=== PATIENT | female | born 1960 | race Caucasian/White ===

== ENCOUNTER 2017-05-26 04:57 | Inpatient (IN) | payer BC, OTHER ==
[2017-05-02 15:08] VITALS: BMI 42.0
--- NOTE | 2017-05-02 15:39 | PAT Medication Instructions ---
Service Date May 02, 2017. Current Home Medication List Ibuprofen Tab (Advil), 400-600 MG PO Q6H PRN for Pain Medication Instructions For Your Scheduled Surgery - Contact your surgeon for instructions for: Ibuprofen Tab (Advil), 400-600 MG PO Q6H PRN for Pain NOTHING TO EAT OR DRINK AFTER MIDNIGHT THE NIGHT BEFORE SURGERY If you have any questions please call us at [phone] or [phone] or [phone]
--- NOTE | 2017-05-02 16:22 | DIAGNOSTIC IMAGING REPORT ---
CHEST 2 VIEWS ROUTINE HISTORY: 57 years-old Female PAT preoperative exam. No acute chest complaints. COMPARISON: Chest radiographs 02/04/2010, CT chest 10/21/2009 TECHNIQUE: PA and lateral views of the chest FINDINGS: Cardiomediastinal and hilar silhouettes are within normal limits. Mild right hemidiaphragmatic elevation. No pneumothorax, pleural effusion, focal airspace consolidation or overt pulmonary edema. Nonspecific 1.4 cm density caudal to the coracoid process suggest possible loose body within the subscapularis recess. Degenerative changes are seen within the shoulders and spine. IMPRESSION: No acute process. The above report was generated using voice recognition software. It may contain grammatical, syntax or spelling errors. Electronically signed by: Miguel Esquivel M.D. 05/02/2017 4:21 PM Dictated Date/Time: 05/02/2017 4:19 PM
[2017-05-02 16:28] LABS: BASO % 0.2 %; BASO ABS # 0.01 K/uL (0-0.2); EOS ABS # 0.15 K/uL (0-0.5); HEMATOCRIT 40.9 % (37-47); HEMOGLOBIN 13.9 g/dL (12.0-16.0); LYMPH % 36.4 %; LYMPH ABS # 1.79 K/uL (1.2-3.4); MEAN CORPUSCULAR HEMOGLOBIN 31.6 pg (25-34); MEAN PLATELET VOLUME 8.8 fL (7.4-10.4); MONO % 7.5 %; MONO ABS # 0.37 K/uL (0.11-0.59); NEUT % 52.9 %; PLATELET COUNT 286 K/uL (130-400); RED CELL DISTRIBUTION WIDTH CV 12.9 % (11.5-14.5); RED CELL DISTRIBUTION WIDTH SD 43.5 fL (36.4-46.3); WHITE BLOOD COUNT 4.92 K/uL (4.8-10.8)
[2017-05-02 16:31] LABS: INR 0.9 (0.9-1.1); PTT PATIENT 26.7 SECONDS (21.0-31.0)
[2017-05-02 16:41] LABS: CALCIUM 9.4 mg/dl (8.5-10.1); CREATININE 0.89 mg/dl (0.60-1.20); POTASSIUM 4.6 mmol/L (3.5-5.1)
--- NOTE | 2017-05-25 14:33 | HISTORY & PHYSICAL EXAMINATION ---
DATE OF ADMISSION: 05/26/2017 CHIEF COMPLAINT: Advanced osteoarthritis of the left hip. HISTORY OF PRESENT ILLNESS: Tammy is a pleasant 57-year-old female who has been dealing with chronic hip pain in her left hip. X-rays and clinical examination were diagnostic for what appeared to be a developmental dysplasia of her hip and severe osteoarthritis. She is to the point now where she is walking with crutches because of the pain. After failing extensive conservative treatment, she elected to proceed with a left total hip arthroplasty. She understands all the risks, benefits, and alternatives to procedure and elected to proceed. PAST MEDICAL HISTORY: Denies. PAST SURGICAL HISTORY: Significant for hysterectomy and 2 C-sections. ALLERGIES: SULFA. CURRENT MEDICATIONS: None. FAMILY HISTORY: Denies. SOCIAL HISTORY: She is , has 2 kids. Rarely drinks. She is mildly active. REVIEW OF SYSTEMS: She complains mostly of left hip pain. All other pertinent review of systems negative. PHYSICAL EXAMINATION: GENERAL: She is awake, alert and orient x3. She is in no apparent distress. She is very pleasant. HEENT: Pupils equal, round, reactive to light. Extraocular motions intact. Oral mucosa is pink and moist. HEART: Heart is a regular rate per radial pulse. LUNGS: Breana symmetrically bilaterally with no audible breath sounds. ABDOMEN: Soft, nontender, and nondistended. MUSCULOSKELETAL: On physical examination of her hip, her left hip is about a centimeter shorter than the right. She walks with a very antalgic gait. She can only flex her hip about 40 degrees and reports she has a lot of pain. She has severe pain with internal and external rotation and very limited range of motion. She has 5/5 muscle strength in her quads. 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 IMPRESSION: Advanced osteoarthritis, left hip. PLAN: We will proceed with a left total hip arthroplasty. Postoperatively, she will be placed on aspirin for DVT prophylaxis and kept in the hospital for postoperative medical management.
[~2017-05-26] VITALS: Ht 149.9 cm; Wt 94.4 kg
[2017-05-26] VITALS (16 sets, daily range): BP systolic 78–118; BP diastolic 53–76; PULSE 61–90; TEMP 34.8–36.9; O2SAT 95–100; Ht 149.9 cm; Wt 94.4 kg
[~2017-05-26 04:57] MED LIST: IBUP-103 PO
[2017-05-26] MEDS ORDERED: ACETAMINOPHEN 500 MG TAB PO SCH (06:00)
[2017-05-26] MEDS ORDERED: ROPIVACAINE 5MG/ML 30 ML 150 MG, BUPIVACAINE 0.5% MPF INJ 30 ML, EpINEphrine HCL INJ 0.... INFIL SCH ×8 (06:00)
[2017-05-26] MEDS ORDERED: LACTATED RINGER'S 1000ML 1,000 ML IV SCH (06:00)
[2017-05-26] MEDS ORDERED: GABAPENTIN 600 MG PO SCH (06:00)
[2017-05-26] MEDS ORDERED: LACTATED RINGER'S 1000ML IV SCH (06:00)
[2017-05-26] MEDS ORDERED: CEFAZOLIN 2000MG IV PUSH 15 ML IV SCH (06:00)
[2017-05-26] MEDS ORDERED: LACTATED RINGER'S 1000ML 500 ML IV SCH (06:00)
[2017-05-26] MEDS ORDERED: FAMOTIDINE 20 MG TAB PO SCH (06:00)
[2017-05-26] MEDS ORDERED: TRANEXAMIC ACID INJ 1,000 MG x 2 Bags IV SCH ×2 (06:00)
[2017-05-26] MEDS ORDERED: BUPIVACAINE 0.5 % 5 MG/1 ML PF 10ML VIAL ONE (06:20)
[2017-05-26] MEDS ORDERED: ORTHO JOINT ANESTHETIC ONE (06:28)
[2017-05-26] MEDS ORDERED: BACITRACIN 50000 UNIT VIAL ONE (06:28)
[2017-05-26] MEDS ORDERED: MIDAZOLAM HCL 1 MG/ML 2ML VIAL ONE ×3 (06:46→07:19)
--- NOTE | 2017-05-26 06:50 | History & Physical Bridge Note ---
H&P Re-Evaluation Bridge Note: I have examined the patient, reviewed the History & Physical and in the interval since the performance of the History & Physical I have noted the following changes of clinical significance: No changes noted
[2017-05-26] MEDS ORDERED: ONDANSETRON INJ 2 MG/ML 2 ML VIAL IV PRN ×2 (08:00→09:30)
[2017-05-26] MEDS ORDERED: EpHEDrine SULFATE INJ 50 MG/ML AMP IV PRN (08:00)
[2017-05-26] MEDS ORDERED: HYDROmorphone INJ 1 MG/ML SYR IV PRN (08:00)
[2017-05-26] MEDS ORDERED: MEPERIDINE HCL 25 MG/ML CARP IV PRN (08:00)
[2017-05-26] MEDS ORDERED: ATROPINE SULFATE 0.1 MG/ML 5ML SYR IV PRN (08:00)
[2017-05-26] MEDS ORDERED: FENTANYL CITRATE INJ 50 MCG/1 ML 2 ML VIAL IV PRN (08:00)
[2017-05-26] MEDS ORDERED: LABETALOL HCL IV 5 MG/ML 20ML IV PRN (08:00)
--- NOTE | 2017-05-26 09:20 | [facility] Post Operative Brief Note ---
Immediate Operative Summary Operative Date May 26, 2017. Pre-Operative Diagnosis Advanced osteoarthritis, left hip Post-Operative Diagnosis Advanced osteoarthritis, left hip Procedure(s) Performed Left Lateral Total Hip Arthroplasty, Uncemented Surgeon Dr. Gallardo Machine Assembler For Puller Over Surgeon(s) Arvind Hogan PA-C Estimated Blood Loss 250 mL Findings Consistent with Post-Op Diagnosis Specimens A: Left femoral head Anesthesia Type Spinal MAC Complication(s) none Disposition Disposition: Recovery Room / PACU
--- NOTE | 2017-05-26 09:27 | DIAGNOSTIC IMAGING REPORT ---
L HIP UNILATERAL 1 VIEW CLINICAL HISTORY: LT LATERAL TOTAL HIP hip replacement COMPARISON: None. DISCUSSION: Evidence for a total left hip arthroplasty. The guide prosthetics are in position. Soft tissue lateral aspect left hip presumably from a left lateral approach. IMPRESSION: Anatomic alignment of an intraoperative total hip arthroplasty The above report was generated using voice recognition software. It may contain grammatical, syntax or spelling errors. Electronically signed by: Juan Ochoa M.D. 05/26/2017 9:26 AM Dictated Date/Time: 05/26/2017 9:25 AM
[2017-05-26] MEDS ORDERED: MAGNESIUM HYDROXIDE SUSP 30 ML UDC PO PRN (09:30)
[2017-05-26] MEDS ORDERED: METOCLOPRAMIDE HCL INJ 5 MG/ML 2 ML VIAL IV PRN (09:30)
[2017-05-26] MEDS ORDERED: BISACODYL 10 MG SUPP PR PRN (09:30)
[2017-05-26] MEDS ORDERED: SOD PHOSPHATE/SOD BIPHOSPHATE ENEMA 132 ML BTL PR PRN (09:30)
[2017-05-26] MEDS ORDERED: MoRPHine SULFATE 2 MG/ML CARP IV PRN (09:30)
[2017-05-26] MEDS ORDERED: FENTANYL CITRATE INJ 50 MCG/1 ML 2 ML VIAL ONE (09:47)
[2017-05-26] MEDS ORDERED: PROPOFOL IV EMULSION 10 MG/ML 20 ML VIAL IV ONE (09:48)
[2017-05-26] MEDS ORDERED: LIDOCAINE HCL 2% 2 ML VIAL (20MG/ML) ONE (09:48)
[2017-05-26] MEDS ORDERED: ONDANSETRON INJ 2 MG/ML 2 ML VIAL ONE (09:48)
--- NOTE | 2017-05-26 10:06 | DIAGNOSTIC IMAGING REPORT ---
L PELVIS/UNILATERAL HIP 1 VIEW CLINICAL HISTORY: IN PACU - A/P PELVIS and LATERAL HIP INCLUDING ALL OF IMPLANT postoperative evaluation COMPARISON: None. DISCUSSION: Anatomic alignment posttotal left hip arthroplasty. Good contact between prosthetic and underlying bone. Surgical drains are in position. Expected soft tissue postoperative change. IMPRESSION: Anatomic alignment posttotal left hip arthroplasty. The above report was generated using voice recognition software. It may contain grammatical, syntax or spelling errors. Electronically signed by: Juan Ochoa M.D. 05/26/2017 10:04 AM Dictated Date/Time: 05/26/2017 10:03 AM
--- NOTE | 2017-05-26 10:25 | Anesthesiology Progress Note ---
Anesthesia Post Op Note Date & Time May 26, 2017 at 10:25 Vital Signs Pain Intensity: 3 Vital Signs Past 12 Hours Date Time Temp Pulse Resp B/P (MAP) Pulse Ox O2 Delivery O2 Flow Rate FiO2 05/26/17 10:15 36.0 59 12 97/75 (80) 98 Nasal Cannula 2 05/26/17 10:05 58 12 105/74 99 Nasal Cannula 2 05/26/17 09:55 64 12 108/68 (78) 99 Nasal Cannula 2 05/26/17 09:45 66 13 82/56 (62) 99 Nasal Cannula 2 05/26/17 09:39 36.1 72 16 89/59 (67) 99 Nasal Cannula 2 05/26/17 05:36 36.6 90 18 118/76 95 Room Air Notes Mental Status: alert / awake / arousable, participated in evaluation Pt Amnestic to Procedure: Yes Nausea / Vomiting: adequately controlled Pain: adequately controlled Airway Patency, RR, SpO2: stable & adequate BP & HR: stable & adequate Hydration State: stable & adequate Neuraxial Anesthesia: was administered, sensory block is resolving Anesthetic Complications: no major complications apparent
[2017-05-26] MEDS: SODIUM CHLORIDE 0.9% 1000ML 1,000 ML IV SCH ×2 (11:16→20:36)
[2017-05-26] MEDS: KETOROLAC TROMETHAMINE 30 MG/ML VIAL IV. SCH ×3 (11:58→23:25)
[2017-05-26] MEDS: CEFAZOLIN IV 2,000 MG in SYRINGE 0 ML IV SCH ×2 (14:03→21:54)
[2017-05-26] MEDS: ACETAMINOPHEN IV 1,000 MG in EMPTY BAG 0 ML IV SCH ×2 (14:03→21:54)
--- NOTE | 2017-05-26 16:01 | OPERATIVE REPORT ---
DATE OF OPERATION: 05/26/2017 PREOPERATIVE DIAGNOSIS: Advanced arthritis secondary to hip dysplasia of the left hip. POSTOPERATIVE DIAGNOSIS: Same. PROCEDURE: Left total hip arthroplasty. SURGEON: Dr. Arvind Gallardo. DRAPERY SEAMSTRESS: Arvind Hogan PA-C, whose assistance was necessary for retraction. ANESTHESIA: Spinal. COMPLICATIONS: None. CONDITION: Stable to PACU. IMPLANTS USED: I used a [employer]omet Taperloc total hip arthroplasty system with a size 5 standard offset Taperloc stem, a G7 OsseoTi acetabular cup with a single 20 mm screw and a G7 dual mobility head. I used a +6 neck. INDICATIONS: Tammy is a pleasant 57-year-old female who has been dealing with chronic increasing left hip pain. X-rays and clinical examination were diagnostic for developmental dysplasia of the left hip that is gone on to develop severe arthritis. After failing conservative treatment, she elected to undergo a left total hip arthroplasty. OPERATION AND FINDINGS: On 05/26/2017, she arrived at [facility] for the above procedure. She was seen in preoperative holding and the operative extremity was identified and signed, she was given a preoperative antibiotic and a spinal anesthetic. She was taken back to the operating room, laid on the table in supine position and put under basic sedation. She was then put in lateral decubitus position. The left hip was then prepped and draped in sterile fashion. Time-out was done. The patient's extremity was properly identified. An anterolateral approach was used. Dissection was taken down through the fascia and the lateral hip was exposed. The tensor was released and the anterior third of the abductors were tenotomized off the greater tuberosity. The capsule was then excised and the hip was dislocated. The femoral neck was then resected and the head was removed. The acetabulum was then exposed. Time was spent doing a complete circumferential capsular labral release. The acetabulum was then reamed sequentially up to a size 47 reamer. I was able to get good circumferential bleeding bone. I decided to use a G7 OsseoTi acetabular cup and that was impacted into place. The dual mobility metal liner was then impacted into place. The proximal femur was then exposed. Sequential broaching up to a size 5 broach was done. A standard femoral head was trialed. The hip was reduced. Flat plate x-ray showed adequate sizing of the components, but her leg was a little bit short. The hip was then dislocated. The broach was removed. The final size 5 Taperloc stem was then impacted into place. Several trials were used and I decided to go with a 28 head with a +6 neck. The final head and neck were impacted into place, the hip was reduced, brought through a full range of motion and felt to be stable. Surrounding soft tissues were injected with 100 mL of an orthopedic pain control cocktail. The wound was then irrigated with 3 liters of normal saline solution with bacitracin. The abductors were then tenodesed back to the greater trochanter with transosseous FiberWire sutures and [id number] sutures. Two drains were placed. Fascia was closed with #1 Vicryl suture. Skin was closed with 2-0 Vicryl and see. A Prevena VAC dressing was then placed. She was then transferred to a hospital bed and taken to postanesthesia care in stable condition. She tolerated the procedure well. I attest to the content of the Intraoperative Record and any orders documented therein. Any exception s are noted below.
[2017-05-26] MEDS: ASPIRIN 325 MG ECTAB PO SCH (20:31)
[2017-05-26] MEDS: DOCUSATE SODIUM 100 MG CAP PO SCH (20:31)
[2017-05-26] MEDS: SENNA 8.6 MG TAB PO SCH (20:31)
[2017-05-26] MEDS: OXYCODONE HCL IR 5 MG TAB (IMMEDIATE RELEASE) PO PRN (21:55)
[2017-05-27] VITALS (8 sets, daily range): BP systolic 91–135; BP diastolic 58–87; PULSE 64–112; TEMP 36.6–37.1; O2SAT 96–100
[2017-05-27] MEDS: ACETAMINOPHEN IV 1,000 MG in EMPTY BAG 0 ML IV SCH (06:04)
[2017-05-27] MEDS: KETOROLAC TROMETHAMINE 30 MG/ML VIAL IV. SCH ×4 (06:04→23:58)
[2017-05-27 06:08] LABS: BASO % 0.1 %; BASO ABS # 0.01 K/uL (0-0.2); EOS % 0.3 %; EOS ABS # 0.02 K/uL (0-0.5); HEMATOCRIT 30.3 % (37-47); HEMOGLOBIN 9.9 g/dL (12.0-16.0); IG# 0.02 K/uL (0.00-0.02); LYMPH % 12.9 %; LYMPH ABS # 1.01 K/uL (1.2-3.4); MEAN CELL VOLUME 93.5 fL (80-100); MEAN CORPUSCULAR HEMOGLOBIN 30.6 pg (25-34); MEAN CORPUSCULAR HGB CONC 32.7 g/dl (32-36); MEAN PLATELET VOLUME 8.6 fL (7.4-10.4); MONO % 7.4 %; MONO ABS # 0.58 K/uL (0.11-0.59); PLATELET COUNT 216 K/uL (130-400); RED CELL DISTRIBUTION WIDTH CV 12.8 % (11.5-14.5); RED CELL DISTRIBUTION WIDTH SD 44.2 fL (36.4-46.3); WHITE BLOOD COUNT 7.84 K/uL (4.8-10.8)
[2017-05-27 06:44] LABS: CALCIUM 7.9 mg/dl (8.5-10.1); CREATININE 1.02 mg/dl (0.60-1.20); POTASSIUM 4.4 mmol/L (3.5-5.1)
[2017-05-27] MEDS: SODIUM CHLORIDE 0.9% 1000ML 1,000 ML IV SCH (06:53)
[2017-05-27] MEDS: ASPIRIN 325 MG ECTAB PO SCH ×2 (08:56→21:09)
[2017-05-27] MEDS: DOCUSATE SODIUM 100 MG CAP PO SCH ×2 (08:56→21:09)
[2017-05-27] MEDS: MULTIVITAMIN TAB PO SCH (08:56)
--- NOTE | 2017-05-27 08:57 | PROGRESS NOTE ---
DATE: 05/27/2017 CHIEF COMPLAINT: Status post left total hip arthroplasty postop day #1. PROGRESS: Tammy was seen and examined at bedside today. Overall, she looks much better. She did have a fall yesterday when she passed out. She fell down slowly to the floor in the bathroom. Her hips have been doing fairly well. She has been up and ambulating to the bathroom since then. Her color is back. She says she feels fine. She has no complaints. PHYSICAL EXAMINATION: LEFT HIP: The Prevena VAC dressing is to suction. Her leg lengths are essentially equal. She has active dorsiflexion, plantarflexion of her left ankle and sensation is intact throughout. VITAL SIGNS: All stable on room air. She is a little hypotensive at 108/72, but not too bad. GENERAL: She is voiding on her own. Her drain output was 400 mL. LABORATORY DATA: She has an H&H today of 9.9 and 30.3. Her glucose is 109. IMAGING: X-rays postoperatively of the left hip show the prosthesis to be in anatomic alignment without any evidence of fracture, dislocation or loosening. IMPRESSION: Status post left total hip arthroplasty postop day #1. PLAN: At this point, she is doing well. She will be seen by physical therapy today for ambulation. We will keep her on oxycodone for pain control. She is on aspirin for DVT prophylaxis. I will see her at bedside tomorrow morning and if she is doing well, the nursing staff can pull the drain and will discharge her to home.
[2017-05-27] MEDS ORDERED: SODIUM CHLORIDE 0.9% 1000ML 1,000 ML IV SCH (12:00)
--- NOTE | 2017-05-27 13:03 | Medical Consult ---
Consultation Date of Consultation: May 27, 2017. Attending Physician: Arvind Gallardo DO Reason for Consultation: Dizziness History of Present Illness 57-year-old female with PMH of osteoarthritis, s/p day 1 Left hip surgery due to left hip pain. Pt failed conservative management and was ambulate with crutches. She had left total hip arthroplasty surgery done yesterday by Dr. Gallardo. Yesterday pt had a syncopal episode after she was going to the bathroom. She said that she felt warm before the syncopal episode. Code bret was called for the syncopal episode. Today pt said that she felt warm and dizzy while walking. She said that they had to hold her to prevent her from falling. After each episode, Her BP was low. Denies any chest pain, palpitation, fever, numbness, weakness and SOB. Social History Smoking Status: Never Smoker Allergies Coded Allergies: Sulfa Drugs (Verified Allergy, Unknown, RASH, 05/26/17) Current Inpatient Medications Current Inpatient Medications Medications (Trade) Dose Ordered Sig/Steffi Route Start Time Stop Time Status Last Admin Dose Admin Ketorolac Tromethamine (Toradol Inj) 30 mg Q6H IV. 05/26/17 12:00 05/28/17 09:29 05/27/17 06:04 30 MG Oxycodone HCl (Roxicodone Immediate Rel Tab) 1 TABLET FOR PAIN RATING... Q4H PRN PO 05/26/17 09:30 06/09/17 09:29 05/26/17 21:55 10 MG Morphine Sulfate (MoRPHine SULFATE INJ) 2 mg Q2HWA PRN IV 05/26/17 09:30 06/09/17 09:29 Acetaminophen (Tylenol Tab) 1,000 mg Q8H PO 05/27/17 14:00 06/26/17 13:59 Magnesium Hydroxide (Milk Of Magnesia Susp) 30 ml Q6H PRN PO 05/26/17 09:30 06/25/17 09:29 Bisacodyl (Dulcolax Supp) 10 mg DAILY PRN CA 05/26/17 09:30 06/25/17 09:29 Sodium Biphosphate/ Sodium Phosphate (Fleet Enema) 132 ml DAILY PRN CA 05/26/17 09:30 06/25/17 09:29 Senna (Senokot Tab) 17.2 mg HS PO 05/26/17 21:00 06/25/17 20:59 05/26/17 20:31 17.2 MG Docusate Sodium (coLACE CAP) 100 mg BID PO 05/26/17 21:00 06/25/17 20:59 05/27/17 08:56 100 MG Multivitamins (Multivitamin Tab) 1 tab QAM PO 05/27/17 09:00 06/26/17 08:59 05/27/17 08:56 1 TAB Ondansetron HCl (Zofran Inj) 4 mg Q6H PRN IV 05/26/17 09:30 06/25/17 09:29 Metoclopramide HCl (Reglan Inj) 10 mg Q6H PRN IV 05/26/17 09:30 06/25/17 09:29 Aspirin (Ecotrin Tab) 325 mg BID PO 05/26/17 21:00 06/25/17 20:59 05/27/17 08:56 325 MG Sodium Chloride 1,000 ml @ 100 mls/hr Q10H IV 05/27/17 12:00 05/27/17 21:59 Review of Systems Constitutional: No fever, No chills Eyes: No worsening of vision, No eye pain ENT: No nasal symptoms Respiratory: No cough, No sputum, No shortness of breath, No dyspnea on exertion Cardiovascular: No chest pain, No palpitations Abdomen: No pain, No nausea, No vomiting Musculoskeletal: No calf pain Genitourinary - Female: No dysuria Neurologic: + vertigo, No memory loss, No paralysis, No weakness, No numbness/ tingling Psychiatric: No depression symptoms, No substance abuse Endocrine: No fatigue Hematologic / Lymphatic: No swollen lymph nodes Integumentary: No rash, No itch Physical Exam Date Time Temp Pulse Resp B/P (MAP) Pulse Ox O2 Delivery O2 Flow Rate FiO2 05/27/17 11:08 36.8 74 16 99/68 (78) 99 Room Air 05/27/17 10:29 98/60 (73) 05/27/17 10:28 64 91/58 (69) 98 Room Air 05/27/17 08:06 Room Air 05/27/17 07:37 36.8 70 17 118/76 (90) 98 Room Air 05/27/17 04:15 36.6 82 16 108/72 (84) 97 Room Air 05/26/17 23:20 36.6 81 18 107/63 (78) 97 Room Air 05/26/17 23:15 Room Air 05/26/17 20:06 36.7 73 16 104/67 (79) 98 Nasal Cannula 2.0 05/26/17 18:08 102/65 (77) 05/26/17 17:12 90/62 (71) 05/26/17 15:55 84/54 (64) 05/26/17 15:50 103/67 (79) 05/26/17 15:45 36.9 72 16 78/53 (61) 98 Nasal Cannula 2.0 05/26/17 15:30 97 Nasal Cannula 2.0 05/26/17 15:06 36.6 86 18 101/63 (76) 97 Room Air 05/26/17 13:38 36.5 79 20 105/68 (80) 99 Nasal Cannula 2.0 General Appearance: no apparent distress Head: normocephalic Eyes: PERRL, EOMI ENT: normal ENT inspection, hearing grossly normal Neck: no JVD, no carotid bruits Respiratory/Chest: lungs clear, no respiratory distress, no accessory muscle use Cardiovascular: regular rate, rhythm, no JVD, no murmur Abdomen/GI: normal bowel sounds, non tender, soft Back: no CVA tenderness Extremities/Musculoskelatal: no calf tenderness Neurologic/Psych: zinc miner blasting II-XII nml as tested, no motor/sensory deficits, alert, oriented x 3 Skin: no rash Laboratory Results Last 24 Hours Test 05/26/17 15:31 05/27/17 05:45 Bedside Glucose 179 mg/dl White Blood Count 7.84 K/uL Red Blood Count 3.24 M/uL Hemoglobin 9.9 g/dL Hematocrit 30.3 % Mean Corpuscular Volume 93.5 fL Mean Corpuscular Hemoglobin 30.6 pg Mean Corpuscular Hemoglobin Concent 32.7 g/dl Platelet Count 216 K/uL Mean Platelet Volume 8.6 fL Neutrophils (%) (Auto) 79.0 % Lymphocytes (%) (Auto) 12.9 % Monocytes (%) (Auto) 7.4 % Eosinophils (%) (Auto) 0.3 % Basophils (%) (Auto) 0.1 % Neutrophils # (Auto) 6.20 K/uL Lymphocytes # (Auto) 1.01 K/uL Monocytes # (Auto) 0.58 K/uL Eosinophils # (Auto) 0.02 K/uL Basophils # (Auto) 0.01 K/uL RDW Standard Deviation 44.2 fL RDW Coefficient of Variation 12.8 % Immature Granulocyte % (Auto) 0.3 % Immature Granulocyte # (Auto) 0.02 K/uL Sodium Level 141 mmol/L Potassium Level 4.4 mmol/L Chloride Level 110 mmol/L Carbon Dioxide Level 23 mmol/L Anion Gap 8.0 mmol/L Blood Urea Nitrogen 21 mg/dl Creatinine 1.02 mg/dl Est Creatinine Clear Calc Drug Dose 61.9 ml/min Estimated GFR () 71.2 Estimated GFR (Non- 61.4 BUN/Creatinine Ratio 20.6 Random Glucose 109 mg/dl Calcium Level 7.9 mg/dl Assessment & Plan Left total hip arthroplasty. S/p day# 1 post-op by Dr. Gallardo Continue monitor h/h Incentive spirometry PT/OT Dizziness Syncopal episode possible related to orthostatic vs vasovagal No focal neuro deficit Will start on NSx1L fall precaution DVT px as per ortho Code status Full code
[2017-05-27] MEDS: ACETAMINOPHEN 500 MG TAB PO SCH ×2 (13:40→21:10)
[2017-05-27] MEDS: SENNA 8.6 MG TAB PO SCH (21:09)
[2017-05-27] MEDS: OXYCODONE HCL IR 5 MG TAB (IMMEDIATE RELEASE) PO PRN (21:11)
[2017-05-28 05:59] LABS: HEMATOCRIT 28.2 % (37-47); HEMOGLOBIN 9.5 g/dL (12.0-16.0); MEAN CELL VOLUME 93.1 fL (80-100); MEAN CORPUSCULAR HEMOGLOBIN 31.4 pg (25-34); MEAN CORPUSCULAR HGB CONC 33.7 g/dl (32-36); MEAN PLATELET VOLUME 8.7 fL (7.4-10.4); PLATELET COUNT 196 K/uL (130-400); RED CELL DISTRIBUTION WIDTH CV 13.3 % (11.5-14.5); RED CELL DISTRIBUTION WIDTH SD 45.1 fL (36.4-46.3); WHITE BLOOD COUNT 6.75 K/uL (4.8-10.8)
[2017-05-28] MEDS: ACETAMINOPHEN 500 MG TAB PO SCH (06:16)
[2017-05-28] MEDS: KETOROLAC TROMETHAMINE 30 MG/ML VIAL IV. SCH (06:17)
[2017-05-28 07:05] VITALS: BP 118/72; PULSE 98; TEMP 37.3; O2SAT 98
[2017-05-28] MEDS ORDERED: RXC5 PO (07:48)
--- NOTE | 2017-05-28 07:50 | Discharge Instructions ---
Discharge Instructions Date of Service May 28, 2017. Admission Reason for Admission: Left Hip Degenerative Joint Disease Discharge Discharge Diagnosis / Problem: L Total Hip Discharge Goals Goal(s): Decrease discomfort, Improve function Activity Recommendations Activity Limitations: as noted below . Instructions / Follow-Up Instructions / Follow-Up Activity and Therapy Recommendations: * If you are using [facility] then Physical Therapy will be provided until they feel you are ready to start Outpatient Physical Therapy. If you are not using a Home Health agency then Outpatient Physical Therapy should start about 3-5 days from your day of surgery. Therapy will last about 3-6 weeks * You were shown a series of exercises in the hospital. Do these exercises three times each day including the exercises you were shown in physical therapy. * Get up and walk several times each day.~ For the first four weeks, try not to stand or walk for more than one hour at a time. If you do stand or walk for more than one hour, you will not hurt anything, but your leg will likely swell.~ ~ * As you feel comfortable, you may change from the walker or crutches to a cane and~then to independent walking. Medications: * Narcotic You will likely be sent home from the hospital with a prescription for the narcotic pain medication that worked best throughout your stay. * Aspirin Most patients will be required to take Aspirin 325mg twice a day for 6 weeks after surgery. This is obtained [id number] and a prescription is not necessary. * Other medications may be prescribed for specific circumstances. If you have any questions, please call the office at . * Resume previous home medications unless otherwise instructed TEDs/Elastic Stockings: The white elastic stockings help limit swelling and prevent blood clots from forming in your legs. The more you wear them, the more they work. Wear them for six weeks. Dressing Care: The VAC dressing will stop working around 8 days. Just peel it off and leave see open to air. Showering: You may shower with the VAC dressing. Let the shower spray hit the opposite side. Things To Watch For: * Drainage from the incision site that occurs more than one week after your surgery. * Increased redness at the incision site. * Fever above 102 degrees Fahrenheit. * Unusual chest pain or shortness of breath. * [facility] at with any of the above problems Follow-Up Visit: Follow-up with Dr. Gallardo 2 weeks after your day of surgery. An appointment was probably scheduled when you signed-up for surgery in the office. If you have any questions call Office Instructions: More detailed instructions as well as Frequently Asked Questions were provided in a folder by our office when you signed-up for surgery. Please review these instructions when you get home. If you have any further questions or concerns, please feel free to call the office at [phone] Current Hospital Diet Patient's current hospital diet: Regular Diet Discharge Diet Recommended Diet: Regular Diet Procedures Procedures Performed: Left Lateral Total Hip Arthroplasty, Uncemented Pending Studies Studies pending at discharge: no Medical Emergencies . Who to Call and When: Medical Emergencies: If at any time you feel your situation is an emergency, please call 911 immediately. . Non-Emergent Contact Non-Emergency issues call your: Surgeon Call Non-Emergent contact if: wound has increased drainage, wound has increased redness . "Provider Documentation" section prepared by Arvind Gallardo. . VTE Core Measure Inpt VTE Proph given/why not?: Other Anticoagulation (Aspirin 325 twice a day)
[2017-05-28] MEDS ORDERED: ASPEC325 PO (07:51)
[2017-05-28] MEDS: DOCUSATE SODIUM 100 MG CAP PO SCH (07:55)
[2017-05-28] MEDS: MULTIVITAMIN TAB PO SCH (07:57)
[2017-05-28] MEDS: ASPIRIN 325 MG ECTAB PO SCH (07:57)
--- NOTE | 2017-05-28 08:04 | PROGRESS NOTE ---
DATE: 05/28/2017 CHIEF COMPLAINT: Status post left total hip arthroplasty postop day #2. PROGRESS: Tammy was seen and examined at bedside today. Overall, she is doing very well. She was up and ambulating with physical therapy yesterday and she was ambulating some this morning. She went down the hallway and back. She has some soreness in her hip, it is not too bad. She did have another syncopal episode yesterday just due to hypotension. The transplant worker was consulted. He just started her with some fluids and ordered another H&H for today. Overall, she says she is feeling much better. PHYSICAL EXAMINATION: LEFT HIP: The Prevena VAC dressing is to suction and intact. Her leg lengths are equal. She has active dorsiflexion and plantarflexion of her left ankle. VITAL SIGNS: Stable on room air. Her current blood pressure is 120/74. She is voiding on her own, has not had a bowel movement yet. LABORATORY DATA: She has an H&H today of 9.5 and 28.2. IMPRESSION: 1. Status post left total hip arthroplasty postop day #2. 2. Postoperative hypotension. PLAN: At this point, she seems to be doing better. She says she feels fine. Her blood pressure appears to be coming up some. She got a liter of fluid by the medicine team. Her H&H looked stable this morning. She will get up again with therapy this morning, and if everything goes well, we will look to discharge her to home with [facility] later today.
--- NOTE | 2017-05-28 08:10 | DISCHARGE SUMMARY ---
DISCHARGE DIAGNOSIS: Advanced osteoarthritis and development of dysplasia of the left hip. PROCEDURE: Left total hip arthroplasty on 05/26/[address] Arvind Gallardo. DISCHARGE INSTRUCTIONS: 1. Aspirin 325 mg twice a day. 2. REGINA hose stockings for 6 weeks. 3. Oxycodone 5-10 mg every 4 hours as needed for pain. 4. Home health for physical therapy. 5. Follow hip precautions. 6. May remove Prevena VAC dressing in 8 days. 7. Follow up with Dr. Gallardo in 2 weeks. HOSPITAL COURSE: Tammy is a pleasant 57-year-old female who presented to my office with severe chronic left hip and groin pain. X-rays and clinical examination were diagnostic for development of dysplasia of the hip that has gone on to develop advanced arthritis. After failing conservative treatment, she elected to undergo total hip arthroplasty. On 05/26/2017, she arrived at [facility] and underwent left total hip arthroplasty without complications. She had a spinal anesthetic. Postoperatively, she was started on aspirin for DVT prophylaxis and discharged to general orthopedic floor. Her hospital course was uneventful. On postop day #1, her H&H was stable at 9.9 and 30.3. She did have an episode where she became slightly syncopal and she fell in the bathroom. She mostly just lowered herself down to the floor. Her hip felt fine. She was a little bit hypotensive. Throughout the day, she was doing better. Later that evening, she became hypotensive again. She did not fall. Medicine was consulted. The medical team did a workup and ordered blood values from the next morning. They gave her a liter of fluid. Overall, she did much better. The next morning, her H&H was 9.5 and 28.2. She was seen again by physical therapy, was able to ambulate into the hallways. She said she was feeling fine and her blood pressure had returned to normal. She was subsequently discharged to home with oral pain medications and the above instructions.
[2017-05-28 08:42] VITALS: BP 118/72; PULSE 98; TEMP 37.3; O2SAT 98
[2017-05-28 11:22] VITALS: BP 118/72
== END 2017-05-28 11:30 | disposition home health service (06) | DRG 470 ==
LOC: C.ACU 04:57 → C.3E 09:24 → ENRESERV 10:13
PROVIDERS: ADMIT Orthopaedic Surgery; ATTEND Orthopaedic Surgery
PROC: 0SRB0JA Replacement of Left Hip Joint with Synthetic Substitute, Uncemented, Open Approach (ICD-10-PCS; principal; 2017-05-26 07:00)
DX: M16.7 Other unilateral secondary osteoarthritis of hip (principal); Z68.41 Body mass index [BMI] 40.0-44.9, adult; Q65.89 Other specified congenital deformities of hip; I95.81 Postprocedural hypotension; R55 Syncope and collapse; W18.39XA Other fall on same level, initial encounter; Y92.231 Patient bathroom in hospital as the place of occurrence of the external cause; E66.01 Morbid (severe) obesity due to excess calories; Z88.2 Allergy status to sulfonamides

== ENCOUNTER 2017-06-07 11:34 | Inpatient (IN) | payer OTHER ==
[~2017-06-07] VITALS: Ht 149.9 cm; Wt 94.4 kg
[~2017-06-07 11:34] MED LIST changes: +ASPEC325 PO; +CEFAZOLIN IV 3,000 MG in SYRINGE 0 ML IV SCH; +RXC5 PO
[2017-06-07] MEDS ORDERED: BISACODYL 10 MG SUPP PR PRN (12:30)
[2017-06-07] MEDS ORDERED: POLYETHYLENE (MIRALAX) 17 GM PACK PO PRN (12:30)
[2017-06-07] MEDS ORDERED: SOD PHOSPHATE/SOD BIPHOSPHATE ENEMA 132 ML BTL PR PRN (12:30)
[2017-06-07] MEDS ORDERED: HYDROmorphone INJ 0.5 MG/0.5 ML SYR IV PRN (12:30)
[2017-06-07] MEDS ORDERED: NALOXONE HCL 0.4 MG/1 ML VIAL/CARP IV PRN (12:30)
[2017-06-07] MEDS ORDERED: MAGNESIUM HYDROXIDE SUSP 30 ML UDC PO PRN (12:30)
[2017-06-07] MEDS ORDERED: HYDROmorphone INJ 0.5 MG/0.5 ML SYR ONE (13:13)
[2017-06-07 13:26] VITALS: BP 132/78; PULSE 91; TEMP 36.6; O2SAT 97; Ht 149.9 cm; Wt 94.4 kg
[2017-06-07] MEDS ORDERED: PATIENT'S HEIGHT AND/OR WEIGHT NEEDED SCH (13:30)
[2017-06-07] MEDS: OXYCODONE/ACETAMINOPHEN 5-325 TAB PO PRN ×2 (13:39→23:54)
[2017-06-07] MEDS ORDERED: CYCLOBENZAPRINE HCL 10 MG TAB PO PRN (14:00)
[2017-06-07] MEDS: HYDROmorphone INJ 0.5 MG/0.5 ML SYR IV PRN ×2 (14:15→16:00)
--- NOTE | 2017-06-07 15:06 | Anesthesiology Progress Note ---
Anesthesia Progress Note Date of Service Jun 07, 2017. Progress Notes 57 y/o w obese female,s/p left MAGDI on 05/26/2017.Pt sustained a fall x 2 and sustained a left homar prosthetic hip Fx for repair.PMHx is sig. for Gerd, migraine H/A's,chronic sinusitis and tympanosclerosis.Discussed anesthesia w/pt, risks vs benefits , all questions answered. ASA 3
[2017-06-07 15:20] VITALS: BP 122/75; PULSE 81; TEMP 36.6; O2SAT 99
[2017-06-07 17:11] LABS: BASO % 0.3 %; BASO ABS # 0.03 K/uL (0-0.2); EOS % 3.2 %; EOS ABS # 0.33 K/uL (0-0.5); HEMATOCRIT 31.4 % (37-47); HEMOGLOBIN 10.5 g/dL (12.0-16.0); IG# 0.02 K/uL (0.00-0.02); LYMPH % 13.3 %; LYMPH ABS # 1.36 K/uL (1.2-3.4); MEAN CELL VOLUME 92.4 fL (80-100); MEAN CORPUSCULAR HEMOGLOBIN 30.9 pg (25-34); MEAN CORPUSCULAR HGB CONC 33.4 g/dl (32-36); MEAN PLATELET VOLUME 8.6 fL (7.4-10.4); MONO % 4.3 %; MONO ABS # 0.44 K/uL (0.11-0.59); NEUT % 78.7 %; NEUT ABS # 8.01 K/uL (1.4-6.5); PLATELET COUNT 559 K/uL (130-400); RED CELL DISTRIBUTION WIDTH CV 12.7 % (11.5-14.5); RED CELL DISTRIBUTION WIDTH SD 42.8 fL (36.4-46.3); WHITE BLOOD COUNT 10.19 K/uL (4.8-10.8)
[2017-06-07 17:23] LABS: CALCIUM 9.6 mg/dl (8.5-10.1); CREATININE 1.01 mg/dl (0.60-1.20); POTASSIUM 3.9 mmol/L (3.5-5.1)
--- NOTE | 2017-06-07 17:24 | HISTORY & PHYSICAL EXAMINATION ---
DATE OF ADMISSION: 06/07/2017 HISTORY AND PHYSICAL ADMISSION NOTE CHIEF COMPLAINT: Left periprosthetic hip fracture. HISTORY OF PRESENT ILLNESS: Tammy is a pleasant 57-year-old female who underwent a left total hip arthroplasty about 12 days ago. She did have a small fall postoperatively in the bathroom, but she was able to get up and ambulate around without much difficulty. The next day, she was ambulating without difficulty. On the following day, she did step up with physical therapy before being discharged to home. At that point, she started having some left hip pain. While she was at home where her pain progressed. She did have a couple small falls at home and complained of continued pain in her left leg. She was seen by [facility], but the pain in her leg was worsening. She presented to my office today for scheduled 2-week followup. I was very concerned with the pain she was having in her leg, mostly in her knee, so I got x-rays of her hip and her knee in the office. The x-rays of the knee were negative, but X-rays of the hip showed a periprosthetic fracture with subsidence of the implant. After discussions with her in the office a conservative versus operative management, she elected to proceed with a revision total hip arthroplasty and cabling of the fracture. She was sent directly over to the hospital as a direct admit and admitted for an add-on surgery tomorrow. PAST MEDICAL HISTORY: Denies. PAST SURGICAL HISTORY: Significant for hysterectomy and 2 C-sections and a left total hip arthroplasty done 12 days ago. ALLERGIES: SULFA. MEDICATIONS: Aspirin 325 mg twice a day for DVT prophylaxis. FAMILY HISTORY: Denies. SOCIAL HISTORY: She is , has 2 kids. Rarely drinks, is mildly active. REVIEW OF SYSTEMS: She complains of significant left knee pain and left leg pain. All other pertinent review of systems is negative. PHYSICAL EXAMINATION: GENERAL: She is awake, alert and orient x3. She is in no apparent distress. She is very pleasant. HEENT: Pupils equal, round, reactive to light. Extraocular motion intact. Oral mucosa is pink and moist. HEART: Regular rate per radial pulse. LUNGS: Breana symmetrically bilaterally with no audible breath sounds. ABDOMEN: Soft, nontender, nondistended. MUSCULOSKELETAL: On physical examination of her hip, she is able to ambulate in the office with a walker, but she has a lot of pain. As she hurts less to stand than it does to sit. She is very uncomfortable at times. She has a lot of spasming of her quad muscle and most of her pain is located more in her left knee. She has full range of motion of her knee. She does have pain with log roll of the left hip. IMAGING DATA: X-rays obtained in my office do show a minimally displaced oblique periprosthetic fracture of the left femur with subsidence of the implant. IMPRESSION: Left periprosthetic femur fracture. PLAN: Will proceed with a removal of the femoral implant and conversion to a long diaphyseal fitting stem with cabling of the fracture. Postoperatively, she will be kept in the hospital for a couple days and will likely be touch toe weightbearing for 6 weeks and weightbear as tolerated.
[2017-06-07] MEDS: DOCUSATE SODIUM/SENNA 50/8.6MG TAB PO SCH (21:55)
[2017-06-07 22:49] VITALS: BP 112/67; PULSE 98; TEMP 37.2; O2SAT 94
[2017-06-07 23:50] VITALS: PULSE 88
[2017-06-08] VITALS (8 sets, daily range): BP systolic 95–137; BP diastolic 63–78; PULSE 77–96; TEMP 36.3–36.8; O2SAT 96–100
[2017-06-08] MEDS ORDERED: BUPIVACAINE 0.5 % 5 MG/1 ML PF 10ML VIAL ONE (08:04)
[2017-06-08] MEDS ORDERED: CEFAZOLIN SOD 3000MG/22.5 ML IV PUSH IV ONE (14:53)
[2017-06-08] MEDS ORDERED: BACITRACIN 50000 UNIT VIAL ONE (15:05)
[2017-06-08] MEDS ORDERED: MIDAZOLAM HCL 1 MG/ML 2ML VIAL ONE (15:28)
[2017-06-08] MEDS ORDERED: DEXAMETHASONE SOD INJ 4 MG/ML VIAL ONE (15:28)
[2017-06-08] MEDS ORDERED: FENTANYL CITRATE INJ 50 MCG/1 ML 2 ML VIAL ONE ×2 (15:28→18:41)
[2017-06-08] MEDS ORDERED: GLYCOPYRROLATE INJ 0.2 MG/ML VIAL ONE (15:28)
[2017-06-08] MEDS ORDERED: NEOSTIGMINE METHYLSULFATE 5 MG/5 ML SYR ONE (15:28)
[2017-06-08] MEDS ORDERED: ONDANSETRON INJ 2 MG/ML 2 ML VIAL ONE (15:28)
[2017-06-08] MEDS ORDERED: LIDOCAINE HCL 2% 2 ML VIAL (20MG/ML) ONE (15:28)
[2017-06-08] MEDS ORDERED: PROPOFOL IV EMULSION 10 MG/ML 20 ML VIAL IV ONE (15:28)
[2017-06-08] MEDS ORDERED: HYDROmorphone INJ 2 MG/ML SYR/VIAL ONE ×2 (16:33→18:43)
[2017-06-08] MEDS ORDERED: ROCURONIUM BROMIDE 10 MG/ML 5 ML VIAL IV ONE (16:51)
[2017-06-08 17:10] LABS: HEMATOCRIT 30.9 % (37-47)
--- NOTE | 2017-06-08 18:31 | [facility] Post Operative Brief Note ---
Immediate Operative Summary Operative Date Jun 08, 2017. Pre-Operative Diagnosis Left periprosthetic femur fracture Post-Operative Diagnosis Left periprosthetic femur fracture Procedure(s) Performed Left Total Hip Revision, ORIF of Periprosthetic Fracture Surgeon Dr. Gallardo [employer] Surgeon(s) Victorino Steiner PA-C Estimated Blood Loss 250cc Findings Consistent with Post-Op Diagnosis Specimens Hemogloblin/Hematocrit sent 1700 to lab A. Explanted Hardware Left Hip Anesthesia Type General Complication(s) none Disposition Disposition: Recovery Room / PACU
--- NOTE | 2017-06-08 18:39 | DIAGNOSTIC IMAGING REPORT ---
L HIP OR FILMS HISTORY: 57 years-old Female LEFT MAGDI left hip total joint arthroplasty. COMPARISON: Radiographs 06/07/2017 TECHNIQUE: 3 spot fluoroscopic images of the left hip were obtained utilizing 13.2 seconds fluoroscopy time FINDINGS: Interval placement of 3 cerclage wires about the proximal diaphyseal left femur with left hip total joint arthroplasty redemonstrated. Previously noted fracture of the proximal femur is not seen on these images. Alignment is satisfactory. Expected postsurgical soft tissue swelling and deep tissue air about the left hip. No retained foreign body identified. IMPRESSION: Left hip arthroplasty and proximal femoral cerclage wires in place with satisfactory alignment. The above report was generated using voice recognition software. It may contain grammatical, syntax or spelling errors. Electronically signed by: Miguel Esquivel M.D. 06/08/2017 6:38 PM Dictated Date/Time: 06/08/2017 6:36 PM
[2017-06-08] MEDS ORDERED: BISACODYL 10 MG SUPP PR PRN (18:45)
[2017-06-08] MEDS ORDERED: METOCLOPRAMIDE HCL INJ 5 MG/ML 2 ML VIAL IV PRN (18:45)
[2017-06-08] MEDS ORDERED: SOD PHOSPHATE/SOD BIPHOSPHATE ENEMA 132 ML BTL PR PRN (18:45)
[2017-06-08] MEDS ORDERED: ONDANSETRON INJ 2 MG/ML 2 ML VIAL IV PRN ×2 (18:45→19:15)
[2017-06-08] MEDS ORDERED: HYDROmorphone INJ 1 MG/ML SYR ONE (19:04)
[2017-06-08] MEDS ORDERED: FLUMAZENIL 0.1 MG/1 ML 10 ML VIAL IV PRN (19:15)
[2017-06-08] MEDS ORDERED: HYDROmorphone INJ 1 MG/ML SYR IV PRN (19:15)
[2017-06-08] MEDS ORDERED: ATROPINE SULFATE 0.1 MG/ML 5ML SYR IV PRN (19:15)
[2017-06-08] MEDS ORDERED: PROMETHAZINE HCL INJ 12.5 MG in SODIUM CHLORIDE 0.9% 50ML 50 ML IV PRN (19:15)
[2017-06-08] MEDS ORDERED: EpHEDrine SULFATE INJ 50 MG/ML AMP IV PRN (19:15)
[2017-06-08] MEDS ORDERED: NALOXONE HCL 0.4 MG/1 ML VIAL/CARP IV PRN (19:15)
[2017-06-08] MEDS ORDERED: LABETALOL HCL IV 5 MG/ML 20ML IV PRN (19:15)
--- NOTE | 2017-06-08 19:24 | OPERATIVE REPORT ---
DATE OF OPERATION: 06/08/2017 PREOPERATIVE DIAGNOSIS: Left periprosthetic hip fracture. POSTOPERATIVE DIAGNOSIS: Same. OPERATIVE PROCEDURE: Revision of left total hip arthroplasty with open reduction internal fixation of left hip fracture. SURGEON: Dr. Arvind Gallardo. PLANER OPERATOR / GRADER: Victorion Steiner PA-C, whose assistance was necessary for retraction and closure. ANESTHESIA: General. COMPLICATIONS: None. CONDITION: Stable to PACU. IMPLANTS USED: I used a [employer] Kemar One piece press-fit stem. The size was 11 x 210. I also used a new G7 E1 dual mobility bearing with a 28 mm ceramic head and a +6 neck. I also used 3 Harsh cables. INDICATIONS: Tammy is a 57-year-old female who had a severely dysplastic hip. She underwent a total hip arthroplasty about 12 days ago. Postoperatively, she did have a fall. When she came to my office, she was having severe knee pain and difficulty ambulating. I got x-rays of her hip and her knee. X-rays of her hip showed a periprosthetic femur fracture and subsidence of the competent. She elected to undergo revision. OPERATION AND FINDINGS: On 06/08/2017, she was taken down from the hospital room to the preoperative holding area, the operative extremity was identified and signed. She was given a preoperative antibiotic and taken back to the operating room, laid on the table in supine position and put under general anesthesia. She was then put in lateral decubitus position. The left hip was then prepped and draped in sterile fashion. Time-out was done. The patient's operative extremity was properly identified. The old incision was opened up and that was extended both proximally and distally. Dissection was taken down through the fat layer to the tensor. The tensor fascia was once again opened. The abductors were tenotomized off the greater trochanter. The hip was then gently dislocated out of the joint. The head and stem were easily removed. The leg was then brought out into full extension once again. The vastus lateralis was split down to the bone and the fracture was easily identified. The fracture was easily reduced and fixed with two [place] cables. Once the fracture was fixed, I placed a third cable just distal to the fracture to avoid any fracture propagation. The proximal femur was then exposed. Sequential reaming up to a size 11 reamer was done. The proximal femur was broached and a size 11 trial stem was impacted into place. A trial head with +6 neck were placed and the hip was reduced. Fluoroscopic images were obtained. I was happy with the overall fit of the prosthesis and the reduction of the fracture and the length. The hip was then dislocated, the trials were removed, the final size 11 x 210 One piece stem was then impacted into place. A 28 mm ceramic head with a +6 neck was snapped into an E1 dual mobility bearing was placed on the femoral stem. The hip was then reduced. The hip was brought through a full range of motion and felt to be stable. The wound was then irrigated with 3 liters of normal saline solution with bacitracin. Two drains were placed. The abductors were tenodesed back to the greater trochanter with side to side #5 FiberWire sutures. The vastus lateralis split was closed with #0 PDS suture. The fascia was closed with #1 PDS suture, deep fat layer was closed with #1 Vicryl and skin was closed with 2-0 Vicryl and see. A Prevena VAC dressing was placed. She was then transferred to a hospital bed and taken to postanesthesia care in stable condition. She tolerated the procedure well. I attest to the content of the Intraoperative Record and any orders documented therein. Any exception s are noted below.
--- NOTE | 2017-06-08 19:37 | DIAGNOSTIC IMAGING REPORT ---
L PELVIS/UNILATERAL HIP 1 VIEW HISTORY: 57 years-old Female IN PACU - A/P PELVIS and LATERAL HIP INCLUDING ALL OF IMPLANT status post placement of cerclage wires of the left hip. Acute left hip fracture. COMPARISON: Pelvis and left hip radiographs 05/26/2017, left hip radiograph 06/07/2017 TECHNIQUE: Portable AP view the pelvis with crosstable lateral view of the left hip FINDINGS: Status post placement of a left femoral prosthesis with elongated femoral stem, exchanged for the previously noted hardware described on study dated 05/26/2017. Additionally, there has been placement of 3 cerclage wires of the proximal left femur with improved alignment of the previously noted acute proximal femoral metadiaphyseal fracture. Skin see are noted with surgical drain and expected postsurgical soft tissue swelling and deep tissue air. Alignment is satisfactory. The imaged bony pelvis appears intact. IMPRESSION: Left hip arthroplasty and cerclage wires with satisfactory alignment. The above report was generated using voice recognition software. It may contain grammatical, syntax or spelling errors. Electronically signed by: Miguel Esquivel M.D. 06/08/2017 7:36 PM Dictated Date/Time: 06/08/2017 7:33 PM
[2017-06-08 19:44] LABS: HEMATOCRIT 28.1 % (37-47); HEMOGLOBIN 9.3 g/dL (12.0-16.0)
--- NOTE | 2017-06-08 19:50 | Anesthesiology Progress Note ---
Anesthesia Post Op Note Date & Time Jun 08, 2017 at 19:50 Vital Signs Pain Intensity: 4 Vital Signs Past 12 Hours Date Time Temp Pulse Resp B/P (MAP) Pulse Ox O2 Delivery O2 Flow Rate FiO2 06/08/17 19:47 36.5 80 14 06/08/17 19:47 80 14 99 06/08/17 19:46 111/62 06/08/17 19:42 98 14 94 06/08/17 19:42 95 14 06/08/17 19:41 112/59 06/08/17 19:37 82 14 06/08/17 19:37 79 14 100 06/08/17 19:32 67 13 100 06/08/17 19:32 68 13 06/08/17 19:31 111/69 06/08/17 19:27 69 14 06/08/17 19:27 68 14 99 06/08/17 19:26 108/63 06/08/17 19:22 101 15 06/08/17 19:22 101 15 100 06/08/17 19:21 127/80 06/08/17 19:17 108 12 100 06/08/17 19:17 106 12 06/08/17 19:16 123/70 06/08/17 19:12 73 12 06/08/17 19:12 71 12 100 06/08/17 19:11 108/61 06/08/17 19:07 69 17 06/08/17 19:07 69 17 100 06/08/17 19:06 116/63 06/08/17 19:03 113/54 06/08/17 19:02 83 18 100 06/08/17 19:02 85 18 06/08/17 18:57 36.5 90 16 151/56 96 Oxymask 7 06/08/17 15:14 37.3 85 18 144/75 (98) 95 Room Air 06/08/17 11:26 36.8 77 20 137/78 (97) 96 Nasal Cannula 2.0 Notes Mental Status: alert / awake / arousable, participated in evaluation Pt Amnestic to Procedure: Yes Nausea / Vomiting: adequately controlled Pain: adequately controlled Airway Patency, RR, SpO2: stable & adequate BP & HR: stable & adequate Hydration State: stable & adequate Anesthetic Complications: no major complications apparent
[2017-06-08] MEDS: KETOROLAC TROMETHAMINE 30 MG/ML VIAL IV. SCH ×2 (20:27→23:40)
[2017-06-08] MEDS: ACETAMINOPHEN IV 1,000 MG in EMPTY BAG 0 ML IV SCH (20:28)
[2017-06-08] MEDS: DOCUSATE SODIUM/SENNA 50/8.6MG TAB PO SCH (20:40)
[2017-06-08] MEDS: ASPIRIN 325 MG ECTAB PO SCH (20:40)
[2017-06-08] MEDS ORDERED: SENNA 8.6 MG TAB PO SCH (21:00)
[2017-06-08] MEDS: HYDROmorphone INJ 0.5 MG/0.5 ML SYR IV PRN (21:05)
[2017-06-08] MEDS: CEFAZOLIN IV 2,000 MG in SYRINGE 0 ML IV SCH (22:39)
[2017-06-08] MEDS: SODIUM CHLORIDE 0.9% 1000ML 1,000 ML IV SCH (23:40)
[2017-06-09 03:43] VITALS: BP 100/64; PULSE 79; TEMP 36.6; O2SAT 97
[2017-06-09] MEDS: ACETAMINOPHEN IV 1,000 MG in EMPTY BAG 0 ML IV SCH ×2 (03:52→12:30)
[2017-06-09] MEDS: SODIUM CHLORIDE 0.9% 1000ML 1,000 ML IV SCH ×2 (03:52→12:31)
[2017-06-09] MEDS: CEFAZOLIN IV 2,000 MG in SYRINGE 0 ML IV SCH (06:11)
[2017-06-09] MEDS: KETOROLAC TROMETHAMINE 30 MG/ML VIAL IV. SCH ×3 (06:12→19:06)
[2017-06-09 07:27] LABS: HEMATOCRIT 23.7 % (37-47); HEMOGLOBIN 7.9 g/dL (12.0-16.0); MEAN CELL VOLUME 92.6 fL (80-100); MEAN CORPUSCULAR HEMOGLOBIN 30.9 pg (25-34); MEAN CORPUSCULAR HGB CONC 33.3 g/dl (32-36); MEAN PLATELET VOLUME 8.1 fL (7.4-10.4); PLATELET COUNT 375 K/uL (130-400); RED CELL DISTRIBUTION WIDTH CV 12.8 % (11.5-14.5); RED CELL DISTRIBUTION WIDTH SD 42.9 fL (36.4-46.3); WHITE BLOOD COUNT 8.77 K/uL (4.8-10.8)
[2017-06-09 07:44] VITALS: BP 98/63; PULSE 89; TEMP 36.7; O2SAT 98
[2017-06-09 07:59] LABS: CALCIUM 8.2 mg/dl (8.5-10.1); CREATININE 0.99 mg/dl (0.60-1.20); POTASSIUM 4.3 mmol/L (3.5-5.1)
[2017-06-09 08:04] LABS: BASO % 0.1 %; BASO ABS # 0.01 K/uL (0-0.2); EOS % 0.1 %; EOS ABS # 0.01 K/uL (0-0.5); IG# 0.03 K/uL (0.00-0.02); LYMPH ABS # 1.23 K/uL (1.2-3.4); MONO % 6.3 %; MONO ABS # 0.55 K/uL (0.11-0.59); NEUT % 79.2 %; NEUT ABS # 6.94 K/uL (1.4-6.5)
[2017-06-09] MEDS: MULTIVITAMIN TAB PO SCH (09:24)
[2017-06-09] MEDS: ASPIRIN 325 MG ECTAB PO SCH ×2 (09:24→20:43)
[2017-06-09] MEDS: DOCUSATE SODIUM 100 MG CAP PO SCH (09:25)
[2017-06-09] MEDS: OXYCODONE HCL IR 5 MG TAB (IMMEDIATE RELEASE) PO PRN ×2 (09:27→19:14)
[2017-06-09 15:40] VITALS: BP 111/65; PULSE 103; TEMP 36.8; O2SAT 97
[2017-06-09] MEDS: DOCUSATE SODIUM/SENNA 50/8.6MG TAB PO SCH (20:43)
[2017-06-09] MEDS: ACETAMINOPHEN 500 MG TAB PO SCH (22:24)
[2017-06-09 23:57] VITALS: BP 126/70; PULSE 104; TEMP 36.8; O2SAT 95
[2017-06-10] MEDS: KETOROLAC TROMETHAMINE 30 MG/ML VIAL IV. SCH ×2 (01:06→06:28)
[2017-06-10] MEDS: ACETAMINOPHEN 500 MG TAB PO SCH (05:51)
[2017-06-10] MEDS: OXYCODONE HCL IR 5 MG TAB (IMMEDIATE RELEASE) PO PRN ×2 (05:53→10:32)
[2017-06-10 07:24] VITALS: BP 106/67; PULSE 96; TEMP 36.9; O2SAT 93
[2017-06-10] MEDS ORDERED: FLX10 PO (07:36)
[2017-06-10] MEDS ORDERED: RXC5 PO (07:36)
--- NOTE | 2017-06-10 07:37 | Discharge Instructions ---
Discharge Instructions Date of Service Jun 10, 2017. Admission Reason for Admission: Periprosthetic Left Hip Fx Discharge Discharge Diagnosis / Problem: Revision Left Total Hip Discharge Goals Goal(s): Decrease discomfort, Improve function Activity Recommendations Activity Limitations: as noted below . Instructions / Follow-Up Instructions / Follow-Up Activity and Therapy Recommendations: * If you are using [facility] then Physical Therapy will be provided until they feel you are ready to start Outpatient Physical Therapy. If you are not using a Home Health agency then Outpatient Physical Therapy should start about 3-5 days from your day of surgery. Therapy will last about 3-6 weeks * You were shown a series of exercises in the hospital. Do these exercises three times each day including the exercises you were shown in physical therapy. Medications: * Narcotic You will likely be sent home from the hospital with a prescription for the narcotic pain medication that worked best throughout your stay. * Aspirin Most patients will be required to take Aspirin 325mg twice a day for 6 weeks after surgery. This is obtained [id number] and a prescription is not necessary. * Other medications may be prescribed for specific circumstances. If you have any questions, please call the office at . * Resume previous home medications unless otherwise instructed TEDs/Elastic Stockings: The white elastic stockings help limit swelling and prevent blood clots from forming in your legs. The more you wear them, the more they work. Wear them for six weeks. Dressing Care: The VAC dressing will stay on for 8 days. The batteries will wear out and it will stop working. Just peel it off and leave see open to air or cover with dry dressing. Showering: You may shower with the VAC dressing. Let the shower spray hit the opposite side. Things To Watch For: * Drainage from the incision site that occurs more than one week after your surgery. * Increased redness at the incision site. * Fever above 102 degrees Fahrenheit. * Unusual chest pain or shortness of breath. * Call [facility] at with any of the above problems Follow-Up Visit: Follow-up with Dr. Gallardo 2 weeks after your day of surgery. An appointment was probably scheduled when you signed-up for surgery in the office. If you have any questions call Office Instructions: More detailed instructions as well as Frequently Asked Questions were provided in a folder by our office when you signed-up for surgery. Please review these instructions when you get home. If you have any further questions or concerns, please feel free to call the office at [phone] Current Hospital Diet Patient's current hospital diet: Regular Diet Discharge Diet Recommended Diet: Regular Diet Procedures Procedures Performed: Left Total Hip Revision, ORIF of Periprosthetic Fracture Pending Studies Studies pending at discharge: no Medical Emergencies . Who to Call and When: Medical Emergencies: If at any time you feel your situation is an emergency, please call 911 immediately. . Non-Emergent Contact Non-Emergency issues call your: Surgeon Call Non-Emergent contact if: wound has increased drainage, wound has increased redness . "Provider Documentation" section prepared by Arvind Gallardo. .
[2017-06-10] MEDS: DOCUSATE SODIUM 100 MG CAP PO SCH (07:53)
[2017-06-10] MEDS: MULTIVITAMIN TAB PO SCH (07:53)
[2017-06-10] MEDS: ASPIRIN 325 MG ECTAB PO SCH (07:54)
--- NOTE | 2017-06-10 08:03 | PROGRESS NOTE ---
DATE: 06/10/2017 CHIEF COMPLAINT: Status post revision left total hip arthroplasty with ORIF of periprosthetic fracture, postop day #2. PROGRESS: Tammy was seen and examined at bedside today. Overall, she is doing very well. She says she feels well. She has not had have any lightheadedness. No nausea. She is asymptomatic with regards to her anemia. Her pain is well controlled. She has no complaints. PHYSICAL EXAMINATION: LEFT HIP: The Prevena VAC dressing is to suction. The drain has been removed. She still has a Tomlinson catheter in place. Her leg lengths are essentially equal. She has active dorsiflexion, plantarflexion of her left ankle. LABORATORY DATA: She has an H&H today of 7.9 and 23.7. Her vital signs are relatively stable on room air. She is a little tachycardic. She is still voiding with a Tomlinson catheter. IMPRESSION: Status post revision left total hip arthroplasty with open reduction internal fixation periprosthetic fracture, postop day #2. PLAN: At this point, she is actually doing fairly well. She will be touch toe weightbearing on her left leg for 6 weeks. I want her to continue aspirin twice a day for 6 weeks. She can take Oxycodone as needed for pain and I gave her a script for Flexeril as needed for muscle spasms. We will have the Tomlinson catheter removed this morning and discharged to home later this morning or early this afternoon.
[2017-06-10 10:04] VITALS: PULSE 96; TEMP 36.9; O2SAT 93
[2017-06-10 11:14] VITALS: BP 145/86
== END 2017-06-10 10:52 | disposition home health service (06) | DRG 467 ==
LOC: C.MSN 12:33
PROVIDERS: ADMIT Orthopaedic Surgery; ATTEND Orthopaedic Surgery
PROC: 0SRS03Z Replacement of Left Hip Joint, Femoral Surface with Ceramic Synthetic Substitute, Open Approach (ICD-10-PCS; principal; 2017-06-08 08:45)
PROC: 0QS704Z Reposition Left Upper Femur with Internal Fixation Device, Open Approach (ICD-10-PCS; principal; 2017-06-08 08:45)
PROC: 0SPS0JZ Removal of Synthetic Substitute from Left Hip Joint, Femoral Surface, Open Approach (ICD-10-PCS; principal; 2017-06-08 08:45)
DX: M97.02XA Periprosthetic fracture around internal prosthetic left hip joint, initial encounter (principal); Z68.41 Body mass index [BMI] 40.0-44.9, adult; Z96.642 Presence of left artificial hip joint; W19.XXXA Unspecified fall, initial encounter; E66.01 Morbid (severe) obesity due to excess calories; Z79.82 Long term (current) use of aspirin; Z88.2 Allergy status to sulfonamides; Z90.710 Acquired absence of both cervix and uterus

== ENCOUNTER 2019-10-24 08:21 | Observation (INO) ==
[2019-10-24] MEDS ORDERED: SODIUM CHLORIDE 0.9% 1000ML 1,000 ML IV SCH (08:45)
--- NOTE | 2019-10-24 08:47 | Emergency Department Note ---
History of Present Illness General Chief complaint: Infection Stated complaint: RT LEG INFECTION FROM INSECT BITE,FEVER Time Seen by Provider: 10/24/19 08:31 History of Present Illness Maximum Pain Intensity: 5 This is an otherwise healthy 59-year-old female that presents to the emergency department via private vehicle with complaints of "right leg infection from insect bite, fever". The patient states that last Monday, about 9 days ago she was at a campfire. She states that on Monday then she noticed some redness develop to the right anterior leg. She thought this was from a bug bite but then this seemed to worsen and she was evaluated Monday and was started on p.o. Keflex. She has been taking this as prescribed since that time. She notes now the redness seems to be worsening and the pain is increasing. She feels slightly nauseous now and when she awoke her temperature was 100.2 F. She reached out to the PCP office and was recommended to come here for further evaluation and management. She denies any history of skin infections or pertinent past medical history. No history of diabetes. Overall discomfort is a 5/10. No cough or other classic COVID symptoms. Home Medications Home Medications Medication Instructions Recorded Confirmed Type cephalexin 500 mg PO QID 10/24/19 10/24/19 History Allergies Allergy/AdvReac Type Severity Reaction Status Date / Time Sulfa (Sulfonamide Allergy Unknown RASH Verified 10/24/19 09:04 Antibiotics) Past Med/Surg History Medical History No pertinent past medical history Surgical History H/O exploratory laparotomy History of total left hip replacement S/P AFSHIN (total abdominal hysterectomy) S/P tonsillectomy Family History Mother Lung cancer Social History Smoking Status: Never smoker Hx Alcohol Use: No Hx Substance Use: No Preferred Language: Armenian Communication Ability: Effective Top Screw Required: No Beliefs That Will Affect Care: None Current Living Situation: Spouse Current Living Situation Comment: /[facility] Other Information That Helps Us Care for You: No Feels Safe at Home: Yes Safety Concerns: Feels Safe At This Time Review of Systems A total of 10 systems reviewed and were otherwise negative Physical Exam Vital Signs Vital Signs - 24 hr 10/24/19 08:25 10/24/19 09:04 10/24/19 09:30 Temperature 37.6 C H Temperature Source Oral Pulse Rate 115 H 100 H 90 Pulse Rate from SpO2 Sensor Pulse Rhythm Regular Pulse Strength Normal Respiratory Rate 20 20 24 Respiratory Effort / Characteristics Non-Labored Spontaneous Respiratory Depth Normal Respiratory Pattern Regular Blood Pressure 155/74 H Blood Pressure Mean 101 Blood Pressure Position Sitting Pulse Oximetry 100 Oxygen Delivery Method Room Air Sepsis Recent Fever Within 48 Hours Yes Sepsis New/Unexplained Change in Mental Status No Sepsis Action Taken by Nursing No Action Required 10/24/19 10:14 10/24/19 10:19 10/24/19 10:30 Temperature Temperature Source Pulse Rate 99 H 95 H 97 H Pulse Rate from SpO2 Sensor 100 H 96 H 98 H Pulse Rhythm Pulse Strength Respiratory Rate 26 H 19 23 Respiratory Effort / Characteristics Respiratory Depth Respiratory Pattern Blood Pressure 106/73 111/69 Blood Pressure Mean 89 84 Blood Pressure Position Pulse Oximetry 97 100 99 Oxygen Delivery Method Sepsis Recent Fever Within 48 Hours Sepsis New/Unexplained Change in Mental Status Sepsis Action Taken by Nursing 10/24/19 10:31 Temperature Temperature Source Pulse Rate 95 H Pulse Rate from SpO2 Sensor 95 H Pulse Rhythm Pulse Strength Respiratory Rate 20 Respiratory Effort / Characteristics Respiratory Depth Respiratory Pattern Blood Pressure Blood Pressure Mean Blood Pressure Position Pulse Oximetry 100 Oxygen Delivery Method Sepsis Recent Fever Within 48 Hours Sepsis New/Unexplained Change in Mental Status Sepsis Action Taken by Nursing VITAL SIGNS - Vital signs and nursing notes were reviewed. Borderline febrile and mildly tachycardic. GENERAL -59-year-old female appearing her stated age who is in no acute distress. Communicates well with provider and answers questions appropriately. SKIN -3 patches of erythema to the right anterior glass/right lateral glass with circumferential edema and increased warmth compared to the left. No drainage. No fluctuance. HEAD - NC/AT. EYES - PERRL with EOMI bilaterally. Sclera anicteric. EARS - No deformities of external structures noted on gross examination bilaterally. MOUTH/OROPHARYNX - Without perioral cyanosis. NECK - Neck with FROM. No nuchal rigidity. LUNGS - Chest wall symmetric without accessory muscle use, intercostals retractions, or central cyanosis. Normal vesicular breath sounds CTA B/L. No wheezes, rales, or rhonchi appreciated. CARDIAC - RRR with S1/S2. No murmur, rubs, or gallops appreciated. EXTREMITIES - No clubbing or peripheral cyanosis. Skin as above. She is tender overlying the right anterior and right lateral calf region. +5/5 strength noted in UE/LE bilaterally. NEUROLOGIC - Cranial nerves II through XII grossly intact. Sensory intact to light touch throughout. PSYCH - A&O, and cooperates fully with examiner. Pt is very pleasant and interacts well with examiner. Course Administered Medications Sodium Chloride (Nss 1000ml) 1,000 mls @ 125 mls/hr IV .Q8H ZAHEER Stop: 11/23/19 13:59 Last Admin: 10/24/19 14:22 Dose: 125 mls/hr Documented by: [id number] Discontinued Medications Sodium Chloride (Nss 1000ml) 1,000 mls @ 999 mls/hr IV .Q1H1M ZAHEER Stop: 10/24/19 09:45 Last Infusion: 10/24/19 10:25 Dose: 0 mls/hr Documented by: [id number] Admin: 10/24/19 09:00 Dose: 999 mls/hr Documented by: [id number] Ceftriaxone Sodium (Rocephin) 2,000 mg in 70 mls @ 140 mls/hr IV NOW STA Stop: 10/24/19 10:17 Last Infusion: 10/24/19 10:50 Dose: 0 mls/hr Documented by: [id number] Admin: 10/24/19 10:19 Dose: 140 mls/hr Documented by: [id number] Vancomycin HCl 1,000 mg/ (Sodium Chloride) 520 mls @ 200 mls/hr IV NOW ONE Stop: 10/24/19 12:46 Last Infusion: 10/24/19 14:15 Dose: 0 mls/hr Documented by: [id number] Admin: 10/24/19 11:25 Dose: 200 mls/hr Documented by: [id number] Medical Decision Making Laboratory Data Result diagrams: 10/24/19 09:00 10/24/19 09:00 Lab Results 10/24/19 10/24/19 10/24/19 Range/Units 09:00 09:00 09:00 WBC 10.03 (4.8-10.8) K/uL RBC 4.31 (4.2-5.4) M/uL Hgb 13.6 (12.0-16.0) g/dL Hct 40.1 (37-47) % MCV 93.0 (80-100) fL MCH 31.6 (25-34) pg MCHC 33.9 (32-36) g/dL RDW Std Deviation 42.7 (36.4-46.3) fL RDW Coeff of Adry 12.5 (11.5-14.5) % Plt Count 283 (130-400) K/uL MPV 8.9 (7.4-10.4) fL Immature Gran % (Auto) 0.1 % Neut % (Auto) 79.7 % Lymph % (Auto) 10.1 % [place] % (Auto) 5.0 % Eos % (Auto) 5.0 % Baso % (Auto) 0.1 % Neut # (Auto) 8.00 H (1.4-6.5) K/uL Lymph # (Auto) 1.01 L (1.2-3.4) K/uL [place] # (Auto) 0.50 (0.11-0.59) K/uL Eos # (Auto) 0.50 (0-0.5) K/uL Baso # (Auto) 0.01 (0-0.2) K/uL Immature Gran # (Auto) 0.01 (0.00-0.02) K/uL Sodium 139 (136-145) mmol/L Potassium 4.0 (3.5-5.1) mmol/L Chloride 107 (98-107) mmol/L Carbon Dioxide 27 (21-32) mmol/L Anion Gap 5.0 (3-11) BUN 16 (7-18) mg/dl Creatinine 0.99 (0.6-1.2) mg/dl Est Cr Clr Drug Dosing 61.9 ml/min Est GFR ( Amer) 72.8 Est GFR (Non-Af Amer) 62.8 BUN/Creatinine Ratio 16.0 (10-20) Glucose 92 (70-99) mg/dl Lactate 2.1 H* (0.4-2.0) mmol/L Calcium 8.9 (8.5-10.1) mg/dl Total Bilirubin 0.5 (0.2-1) mg/dl AST 18 (15-37) U/L ALT 23 (12-78) U/L Alkaline Phosphatase 73 (45-117) U/L Total Protein 7.8 (6.4-8.2) gm/dl Albumin 3.7 (3.4-5.0) gm/dl Globulin 4.1 H (2.5-4.0) gm/dl Albumin/Globulin Ratio 0.9 (0.9-2) Imaging Data Radiologist's Impression: US venous doppler LE RT HISTORY: 59 years-old Female R leg pain, erythema, edema. R/o DVT acute right leg pain with soft tissue swelling COMPARISON: None TECHNIQUE: Multiple real-time sonographic images of the right lower extremity deep venous structures were obtained assessing grayscale appearance, color and spectral flow FINDINGS: Normal flow, compressibility, phasicity and augmentation of the right lower extremity deep venous structures. There are a few prominent likely benign right inguinal lymph nodes present measuring up to 9 mm in short axis with normal fatty fritz. IMPRESSION: No sonographic evidence of deep venous thrombosis. ACT 112: Negative or not required by law. The above report was generated using voice recognition software. It may contain grammatical, syntax or spelling errors. Electronically signed by: Miguel Esquivel M.D. 10/24/2019 10:11 AM MDM Narrative Patient was seen and evaluated as above in room C05. Review was performed of nursing notes and vital signs. After obtaining a thorough history and physical examination the above work up was performed. She presents to us today with what appears to be a worsening cellulitis of the right lower extremity. This likely began as some insect bites and although there could be some residual irritation from this given the patient's tachycardic state, worsening symptoms despite p.o. antibiotics and borderline febrile state believe that further evaluation and management would be warranted here. IV access was established. Labs were drawn. There is no leukocytosis or anemia. No emergent metabolic disturbance. Lactic was mildly elevated and rechecked within 2 hours and was found to be within normal limits. She was hydrated with fluids and given empiric IV Rocephin and vancomycin. Case discussed with the attending physician as well as the hospitalist. I do believe that further evaluation and management in the inpatient setting is warranted secondary to the patient's worsening state in the outpatient setting despite p.o. antibiotics for several days. While in the department, I personally reevaluated the patient and she was found to be resting comfortably. The patient was educated upon management, educated upon todays findings/results, educated upon importance of follow up from today's visit, educated upon symptoms in which to return, had questions answered prior to discharge, verbalized understanding, and was discharged home in good condition. In the evaluation and treatment of this patient the following differential diagnoses were entertained: Fracture, dislocation, subluxation, contusion, Lyme disease, cellulitis, exanthem, COVID-19, among others. Impression & Plan Cellulitis of right leg Discharge Plan Visit Data *Final* Discharge Date/Time: 10/24/19 13:29 Chief Complaint: Infection Stated Complaint: RT LEG INFECTION FROM INSECT BITE,FEVER ED Provider: Terry Layne ED Midlevel Provider: Yemi Alex Discharge Problem: Cellulitis of right leg Patient Disposition: Admitted As Inpatient Condition: Good Discharge Instructions Interventions: ED Discharge Assessment Last Done: 10/24/19 13:29
[2019-10-24 09:13] LABS: Basophils # (auto) 0.01 K/uL (0-0.2); Basophils % (auto) 0.1 %; Hematocrit (blood only) 40.1 % (37-47); Hemoglobin 13.6 g/dL (12.0-16.0); Immature Granulocytes # (auto) 0.01 K/uL (0.00-0.02); Immature Granulocytes % (auto) 0.1 %; Lymphocytes # (auto) 1.01 K/uL (1.2-3.4); Lymphocytes % (auto) 10.1 %; Mean Corpuscular Hemoglobin 31.6 pg (25-34); Mean Corpuscular Hgb Conc 33.9 g/dL (32-36); Mean Platelet Volume 8.9 fL (7.4-10.4); Neutrophils % (auto) 79.7 %; Platelet Count 283 K/uL (130-400); RDW Coefficient of Variation 12.5 % (11.5-14.5); RDW Standard Deviation 42.7 fL (36.4-46.3); Red Blood Count 4.31 M/uL (4.2-5.4); White Blood Count 10.03 K/uL (4.8-10.8)
[2019-10-24 09:30] LABS: Albumin Level 3.7 gm/dl (3.4-5.0); Calcium 8.9 mg/dl (8.5-10.1); Creatinine Clr Calc Pharmacy 61.9 ml/min; Est GFR (African American) 72.8; Est GFR (Non-African American) 62.8
[2019-10-24 09:33] LABS: Albumin Globulin Ratio 0.9 (0.9-2); Bilirubin,Total 0.5 mg/dl (0.2-1); Globulin 4.1 gm/dl (2.5-4.0); Total Protein 7.8 gm/dl (6.4-8.2)
[2019-10-24] MEDS ORDERED: cefTRIAXone SODIUM 2,000 MG/70 ML BAG IV STA (09:48)
[2019-10-24] MEDS ORDERED: VANCOMYCIN HCL 1,000 MG in SODIUM CHLORIDE 0.9% 500 ML IV ONE (10:11)
[2019-10-24] MEDS ORDERED: VANCOMYCIN CONSULT ACTIVE PRN (10:11)
--- NOTE | 2019-10-24 10:12 | Ultrasound Report ---
US venous doppler LE RT HISTORY: 59 years-old Female R leg pain, erythema, edema. R/o DVT acute right leg pain with soft tis darrell swelling COMPARISON: None TECHNIQUE: Multiple real-time sonographic images of the right lower extremity deep venous structures were obtained assessing grayscale appearance, color and spectral flow FINDINGS: Normal flow, compressibility, phasicity and augmentation of the right lower extremity deep venous str uctures. There are a few prominent likely benign right inguinal lymph nodes present measuring up to 9 mm in short axis with normal fatty fritz. IMPRESSION: No sonographic evidence of deep venous thrombosis. ACT 112: Negative or not required by law. The above report was generated using voice recognition software. It may contain grammatical, syntax o r spelling errors. Electronically signed by: Miguel Esquivel M.D. 10/24/2019 10:11 AM
--- NOTE | 2019-10-24 11:39 | History & Physical Report ---
Date of Service October 24, 2019 Assessment & Plan (1) Cellulitis of right leg: -Admit to [facility] with telemetry -Patient presenting from home for evaluation of worsening right lower leg redness, swelling, pain. Was placed on cephalexin on 10/18 by PCP for cellulitis after a bug bite she got about 9 days ago while camping. -On presentation: low-grade temp of 37.6, tachycardic 110s, lactic acid 2.1. WBC 10 K, BP stable.; May have early sepsis -Repeat lactic acid -HR improving after IVF in ED -Received IV ceftriaxone and IV vancomycin in the ED, will continue with IV ceftriaxone and p.o. doxycycline for now -Follow blood cultures -RLE Doppler negative for DVT (2) DVT prophylaxis: -SQ Lovenox History of Present Illness Chief Complaint: Right Leg Cellulitis Primary Care Provider: Ephraim Jones MD 59 year old female with PMH osteoarthritis, chronic sinusitis, and other problems listed below who presents to the ED for evaluation of worsening right leg cellulitis. Patient reports she was camping about 9 days ago and got two bug bites to her lower right leg. She reports increased redness, swelling, and pain. She was seen by her PCP on 10/18 and placed on cephalexin. Despite taking the antibiotic, she reports she has continued increased redness and pain to the right lower leg. Last night she reports she had some nausea but denies vomiting. This morning she had a temperature of around 100. She then presented to the ED for further evaluation. Patient denies chest pain or shortness of breath. No lightheadedness, dizziness, diaphoresis, syncopal events. Denies abdominal pain and diarrhea. No urinary symptoms. In the ED, patient has low-grade temp of 37.6, tachycardic 110s, and mildly elevated lactic acid 2.1. WBC 10 K and BP is stable. RLE Doppler negative for DVT. Patient was given IVF, IV ceftriaxone, IV vancomycin. Allergies Allergy/AdvReac Type Severity Reaction Status Date / Time Sulfa (Sulfonamide Allergy Unknown RASH Verified 10/24/19 09:04 Antibiotics) Home Medications Home Medications Medication Instructions Recorded Confirmed Type cephalexin 500 mg PO QID 10/24/19 10/24/19 History Past Med/Surg History Medical History No pertinent past medical history Surgical History H/O exploratory laparotomy History of total left hip replacement S/P AFSHIN (total abdominal hysterectomy) S/P tonsillectomy Family History Mother Lung cancer Social History Smoking Status: Never smoker Hx Alcohol Use: No Preferred Language: Lao Feels Safe at Home: Yes Review of Systems Review of Systems: ROS per HPI, all other systems reviewed and negative Physical Exam Physical Exam: Please refer to Dr. Phillips's addendum for physical exam. Results & Data Results & Data ([facility]) Vital Signs (Past 12 Hours) Vital Signs Temp Pulse Resp BP Pulse Ox 10/24/19 08:25 37.6 C H 115 H 20 155/74 H 100 Laboratory Results Short CBC 10/24/19 10/24/19 Range/Units 09:00 09:00 WBC 10.03 (4.8-10.8) K/uL Hgb 13.6 (12.0-16.0) g/dL Hct 40.1 (37-47) % Plt Count 283 (130-400) K/uL Lactate 2.1 H* (0.4-2.0) mmol/L BMP 10/24/19 09:00 Sodium 139 Potassium 4.0 Chloride 107 Carbon Dioxide 27 BUN 16 Creatinine 0.99 Glucose 92 Calcium 8.9 Liver Function 10/24/19 Range/Units 09:00 Total Bilirubin 0.5 (0.2-1) mg/dl AST 18 (15-37) U/L ALT 23 (12-78) U/L Alkaline Phosphatase 73 (45-117) U/L Albumin 3.7 (3.4-5.0) gm/dl Diagnostic Findings RLE DOPPLER IMPRESSION: No sonographic evidence of deep venous thrombosis. Code Status & VTE Plan VTE Prophylaxis Plan VTE Prophylaxis will be ordered: Yes Supervising Physician Co-Signing Physician Notes Patient was seen and examined by me, care coordinated with Liset Nichole NP. Please see her note above for further details. Mrs. Escoto is a 59-year-old female, with no significant past medical history who presents to ED after failed p.o. antibiotic therapy for right leg cellulitis. Patient reports camping about 9 days ago, and reported bug bites on her right lower extremity. She also reports being in [facility] prior to that however denies any redness or pain after that. She was prescribed Keflex by her primary care provider on Monday and reports taking it as prescribed. However right lower extremity redness pain and warmness was getting worse for the patient. She reports subjective fever this morning. She was advised by PCP to present to ED. White blood cell count 10 K, lactic acid 2.1, heart rate 115, temperature 37.6 C. BP normal. Duplex of right lower extremity negative for DVT. Patient denies taking any other medications on a regular basis. Blood cultures were obtained in ED. She is currently sitting up in bed, in no acute distress. She is alert and oriented and answering questions appropriately. Lung sounds are clear to auscultation bilaterally, no wheezing rhonchi or crackles noted. Heart sounds are regular. Abdomen is soft, nontender, nondistended, obese, positive bowel sounds. She is moving all extremities spontaneously and without difficulty. There is significant warmth to her right calf, erythema on her posterior right calf and right glass and some edema. Currently erythema is not demarcated, however progression was reviewed in the pictures on her cell phone. She received vancomycin and Rocephin in ED, will switch to Rocephin and doxycycline for now. We will closely monitor, continue IVF, and will perla the erythema. Repeat lactic acid. Follow blood cultures. Edi Phillips MD
[2019-10-24] MEDS ORDERED: ACETAMINOPHEN 325 MG TAB PO PRN (13:42)
[2019-10-24] MEDS: SODIUM CHLORIDE 0.9% 1000ML 1,000 ML IV SCH ×3 (14:22→22:22)
[2019-10-24] MEDS: DOXYCYCLINE HYCLATE 100 MG CAP PO SCH (20:20)
[2019-10-24] MEDS: ENOXAPARIN INJ 40 MG/0.4 ML SYR SQ SCH (20:20)
[2019-10-25] MEDS: SODIUM CHLORIDE 0.9% 1000ML 1,000 ML IV SCH ×2 (06:21→14:12)
[2019-10-25 06:44] LABS: Hematocrit (blood only) 35.3 % (37-47); Hemoglobin 11.9 g/dL (12.0-16.0); Mean Corpuscular Hemoglobin 31.5 pg (25-34); Mean Corpuscular Hgb Conc 33.7 g/dL (32-36); Mean Corpuscular Volume 93.4 fL (80-100); Mean Platelet Volume 8.9 fL (7.4-10.4); Platelet Count 238 K/uL (130-400); RDW Coefficient of Variation 12.8 % (11.5-14.5); RDW Standard Deviation 43.8 fL (36.4-46.3); Red Blood Count 3.78 M/uL (4.2-5.4); White Blood Count 6.59 K/uL (4.8-10.8)
[2019-10-25 07:15] LABS: BUN Creatinine Ratio 12.7 (10-20); Calcium 8.5 mg/dl (8.5-10.1); Creatinine Clr Calc Pharmacy 73.8 ml/min; Est GFR (African American) 90.1; Est GFR (Non-African American) 77.7; Potassium 3.6 mmol/L (3.5-5.1)
[2019-10-25] MEDS: DOXYCYCLINE HYCLATE 100 MG CAP PO SCH (07:53)
[2019-10-25] MEDS: ENOXAPARIN INJ 40 MG/0.4 ML SYR SQ SCH (07:53)
[2019-10-25] MEDS ORDERED: cefTRIAXone SODIUM 2,000 MG in DEXTROSE 5% 50 ML IV SCH (10:00)
--- NOTE | 2019-10-25 15:08 | Discharge Summary ---
Date of Service October 25, 2019 Admission HPI Per Admitting Provider 59 year old female with PMH osteoarthritis, chronic sinusitis, and other problems listed below who presents to the ED for evaluation of worsening right leg cellulitis. Patient reports she was camping about 9 days ago and got two bug bites to her lower right leg. She reports increased redness, swelling, and pain. She was seen by her PCP on 10/18 and placed on cephalexin. Despite taking the antibiotic, she reports she has continued increased redness and pain to the right lower leg. Last night she reports she had some nausea but denies vomiting. This morning she had a temperature of around 100. She then presented to the ED for further evaluation. Patient denies chest pain or shortness of breath. No lightheadedness, dizziness, diaphoresis, syncopal events. Denies abdominal pain and diarrhea. No urinary symptoms. In the ED, patient has low-grade temp of 37.6, tachycardic 110s, and mildly elevated lactic acid 2.1. WBC 10 K and BP is stable. RLE Doppler negative for DVT. Patient was given IVF, IV ceftriaxone, IV vancomycin. Admission Exam Per Admitting Provider 59 year old female with PMH osteoarthritis, chronic sinusitis, and other problems listed below who presents to the ED for evaluation of worsening right leg cellulitis. Patient reports she was camping about 9 days ago and got two bug bites to her lower right leg. She reports increased redness, swelling, and pain. She was seen by her PCP on 10/18 and placed on cephalexin. Despite taking the antibiotic, she reports she has continued increased redness and pain to the right lower leg. Last night she reports she had some nausea but denies vomiting. This morning she had a temperature of around 100. She then presented to the ED for further evaluation. Patient denies chest pain or shortness of breath. No lightheadedness, dizziness, diaphoresis, syncopal events. Denies abdominal pain and diarrhea. No urinary symptoms. In the ED, patient has low-grade temp of 37 .6, tachycardic 110s, and mildly elevated lactic acid 2.1. WBC 10 K and BP is stable. RLE Doppler negative for DVT. Patient was given IVF, IV ceftriaxone, IV vancomycin. Principal Diagnosis RLE cellulitis Discharge Exam CONSTITUTIONAL: WNWD, vitals as above, generally well-appearing EYES: normal conjunctivae, no scleral icterus ENT: external ear and nose normal, MMM RESPIRATORY: clear to auscultation bilaterally, no crackles, rales or wheezes, normal respiratory effort CARDIOVASCULAR: regular rate and rhythm, S1 and 2 heard without murmurs, gallops or rubs, no JVD, no peripheral edema MUSCULOSKELETAL: strength 5/5 throughout, ambulating independently SKIN: warm and dry, erythema and RLE swelling significantly improved from initial baseline marked on her leg. NEUROLOGIC: no gross focal deficits. PSYCHIATRIC: alert cooperative and oriented to person, place and time. Discharge Data Allergies Allergy/AdvReac Type Severity Reaction Status Date / Time Sulfa (Sulfonamide Allergy Unknown RASH Verified 10/24/19 09:04 Antibiotics) Consultations 10/24/19 10:21 ED Decision to Admit Stat Ordered Studies 10/24/19 08:40 US venous doppler LE RT Stat Hospital Course (1) Cellulitis of right [age]-year-old female with worsening right lower extremity redness and swelling after a bug bite and no improvement on cephalexin. She was admitted to the hospitalist service out of concern for an early developing sepsis with a temp of 37.6C, heart rate in the 110s, white blood cell count 10 K. Lactic acid was 2.1 with a repeat that it improved after IV fluids. She was started on IV ceftriaxone and vancomycin and was continued on IV ceftriaxone and oral doxycycline. A Doppler ultrasound of the right leg was negative for DVT. Blood cultures were negative at time of discharge. The following day the erythema had improved significantly from the baseline lines that were drawn on her leg. She reported feeling well and was ambulating at baseline. She was mentating at baseline and tolerating p.o. She remained afebrile and hemodynamically stable overnight and was discharged on both cefdinir and doxycycline with close primary care follow-up recommended. Naproxen was given to help with pain and inflammation. Total Time Total Time Spent Total Time Spent (In Minutes): 60 Total Time Includes: Examination of the Patient, Discharge Planning, Medication Reconciliation and Communication With Other Providers Discharge Plan Discharge Items Patient Disposition: Home - Self-Care Reason For Visit: CELLULITIS Discharge Diagnosis: RLE cellulitis Condition on Discharge: Good Activity: Resume your previous activity Non-emergency contact: Primary Care Provider Call non-emergency contact if: you have any medication questions, your symptoms worsen, your pain is not controlled, your pain is worsening, your pain is unusual for you, your pain is concerning for you and you have a fever Follow-up/Referrals: Ephraim Jones MD [Primary Care Provider] - 10/31/19 11:00 am Diet: Regular Addtl Attending Provider Instructions: Please take all medications as instructed on discharge list below. If you experience a side effect to the antibiotics, please contact your primary care physician (PCP) for an alternative. Keep your leg elevated when able. You are fine to drive and return to work without restrictions. You are being given Naproxen to help with pain and inflammation. If you find you are needing this consistently, it can be hard on your stomach and your kidneys, and bloodwork by your PCP would be recommended. It was a pleasure taking care of you! Please call if you have any questions or problems. You can reach a [facility] hospitalist on duty at [facility] 24 hours a day by calling [phone]. Take care of yourself. Analilia Lorenzo, [facility] Pending Studies at Discharge: Yes Studies:: blood cultures-negative at time of discharge Stand-Alone Forms: My [facility], Smoking Cessation Medications and DC Order Prescriptions: New doxycycline hyclate 100 mg Capsule 100 mg PO BID Qty: 20 RF: 0 naproxen 500 mg tablet 500 mg PO Q12H PRN (Reason: pain) Qty: 20 RF: 0 cefdinir 300 mg capsule 300 mg PO BID Qty: 20 RF: 0 Discontinued cephalexin 500 mg capsule 500 mg PO QID RF: 0 Discharge Orders: Discharge Order (Routine); Ordered 10/25/19 Ordered By: Analilia Lorenzo Admission Data Admit Date/Time: 10/24/19 11:16 Attending Provider: Analilia Lorenzo Admit Provider: Brennan Phillips Primary Care Provider: Ephraim Jones Other Providers: Analilia Lorenzo Other Interventions: Discharge Summary Assessment (RN) Last Done: 10/25/19 15:28 DC Date/Time DO NOT enter until pt leaves facility: 10/25/19 15:58
--- NOTE | 2019-10-30 13:35 | Communication Note ---
Date of Service: October 30, 2019 1 out of 2 blood cultures from 10/24/19 growing gram negative bacilli, ID and sensitivities pending. Patient was admitted for cellulitis and discharged on doxycycline + cefdinir. Tried to call patient at her home to see how she was doing. No answer. Left message for her to call me back. Has follow-up appt in clinic.
--- NOTE | 2019-10-31 12:18 | Communication Note ---
Date of Service: October 31, 2019 Patient returned call last evening re: + blood culture from 10/23. Afebrile and feels well. Taking antibiotics as prescribed. Has f/u in clinic arranged. Instructed to seek medical attention for fever or other concerns.
== END 2019-10-25 15:58 | disposition home or self-care (01) ==
LOC: ED 08:21 → 2W 11:16 → INTOOBSV 11:16 → SUATTDRO 11:16 → 2W 13:29

== ENCOUNTER 2022-06-10 07:52 | Observation (INO) ==
--- NOTE | 2022-05-09 08:50 | PAT Medication Instructions ---
Medication Instructions Date of Service May 09, 2022 Home Medications Medication Instructions Recorded cefdinir 300 mg capsule 300 mg PO BID #20 caps 10/25/19 doxycycline hyclate 100 mg capsule 100 mg PO BID #20 caps 10/25/19 naproxen 500 mg tablet 500 mg PO Q12H PRN pain #20 tabs 10/25/19 cefdinir 300 mg capsule 300 mg PO BID doxycycline hyclate 100 mg capsule 100 mg PO BID naproxen 500 mg tablet 500 mg PO Q12H PRN pain meloxicam 15 mg tablet 15 mg PO QAM multivitamin 1 tab PO QAM Continue as directed cefdinir 300 mg capsule 300 mg PO BID doxycycline hyclate 100 mg capsule 100 mg PO BID ASK your surgeon for instructions naproxen 500 mg tablet 500 mg PO Q12H PRN pain meloxicam 15 mg tablet 15 mg PO QAM DO NOT take the morning of surgery multivitamin 1 tab PO QAM Other Notes If you have any questions please call us at [phone] or [phone] or [phone] or [phone]
--- NOTE | 2022-05-11 09:09 | Anesthesiology Consultation ---
Date of Service May 11, 2022 Assessment & Plan (1) Encounter for pre-operative examination: - COVID screening: Per assessment on 05/11: No known COVID-19 positive contacts or current COVID-19 related symptoms. Travel screen negative. Patient vaccinated. At surgeon discretion if preop Covid testing being done. - Previous hip surgery Left lateral MAGDI (05/26/17): SAB x1 attempt at [facility]. Pt had post-op fall (syncopal episode going to bathroom- possible orthostatic or vasovagal per hospital records) resulting in femur fracture requiring subsequent surgery/ORIF. Left ORIF periprosthetic hip fracture (06/08/17): Grade view 2, MAC#3, ETT 7.5 at [facility]. - Outpatient joint assessment: Pt currently scheduled for inpatient pathway. If surgeon requests review for outpatient joint pathway, patient is not recommended candidate for outpatient joint program from anesthesia standpoint. Chart Review Chart Review: Acceptable Risk for Surgery and Patient seen in Pre Admission Testing Teaching & Discussion Pre-Anesthesia Teaching/Discussion Notes: Instructed NPO after midnight before surgery,except medications with 15 cc of water. Medication instructions provided according to the PAT guidelines. History Surgery Operation Date: 06/10/22 10:30 Proposed Procedures p Right Anterior Total Hip Arthroplasty - Arvind Gallardo, Height/Weight Height: 4 ft 11 in Weight: 99.5 kg Allergies Allergy/AdvReac Type Severity Reaction Status Date / Time Sulfa (Sulfonamide Allergy Unknown RASH Verified 05/09/22 07:38 Antibiotics) Medications Home Medications Medication Instructions Recorded Confirmed Last Taken naproxen 500 mg tablet 500 mg PO Q12H PRN pain #20 tabs 10/25/19 05/09/22 Unknown meloxicam 15 mg tablet 15 mg PO QAM 05/09/22 05/09/22 Unknown multivitamin 1 tab PO QAM 05/09/22 05/09/22 Unknown Past Medical History Medical History History of COVID-19 11/2021 > not hospitalized Morbid obesity Osteoarthritis Exercise / Class Metabolic Activity III < 4 Walking/Shop/Light housework Past Family History Family History Mother Lung cancer Past Surgical History Surgical History (Updated 05/11/22 @ 11:14 by Siobhan Callahan) H/O exploratory laparotomy History of carpal tunnel release right History of ear surgery B/L ear drums reconstruction + multiple tubes History of total left hip replacement Left lateral MAGDI (05/26/17): SAB x1 attempt at [facility]. Pt had post-op fall (syncopal episode going to bathroom- possible orthostatic or vasovagal per hospital records) resulting in femur fracture requiring subsequent surgery/ORIF. Left ORIF periprosthetic hip fracture (06/08/17): Grade view 2, MAC#3, ETT 7.5 at [facility]. S/P AFSHIN (total abdominal hysterectomy) S/P tonsillectomy [place] teeth extracted Past Anesthesia History No Hx of Anesthesia Complications and No Family Hx of Anesthesia Complications History of PONV No Hx of PONV and No Hx of Motion Sickness Social History Smoking Status: Never smoker Do You Dip or Chew Tobacco: No Hx Alcohol Use: No Hx Substance Use: No substance use type: does not use Review of Systems Patient denies chest pain, shortness of breath, fever, chills, cough, wheezing, palpitations. Physical Exam Vital Signs VITALS BP 124/75 P 83 TEMP 98.3 SP02 97%RA RESP 18 PHYSICAL Full cervical extension range of motion. Full TMJ range of motion. TMD 3 finger breaths Mallampati Score 1 (crowded airway) Dentition: missing side/molars Lungs: clear throughout to auscultation Cardiac: regular rate and rhythm, no murmurs noted Spine: normal Carotid arteries: negative bruit Extremities: no edema Lab Results Anesthesia Preop Results Results Anesthesia Widget: WBC 4.42 K/ul (4.8-10.8) L 05/11/22 Hgb 13.0 g/dl (12.0-16.0) 05/11/22 Hct 38.4 % (37.0-47.0) 05/11/22 Plt 306 K/uL (130-400) 05/11/22 Na 140 mmol/L (136-145) 05/11/22 K 4.3 mmol/L (3.5-5.1) 05/11/22 Cl 107 mmol/L (98-107) 05/11/22 CO2 30 mmol/L (21-32) 05/11/22 BUN 26 mg/dl (6-23) H 05/11/22 Creat 0.81 mg/dl (0.6-1.2) 05/11/22 Glucose Level 84 mg/dl (70-99(Fasting)) 05/11/22 PT 10.0 Seconds (9.0-12.0) 05/11/22 PTT 25.9 Seconds (21.0-31.0) 05/11/22 INR 0.9 (0.9-1.1) 05/11/22 Blood Type A Positive 05/11/22 Antibody Screen NEGATIVE 05/11/22 Testing Electrocardiogram Date: 05/11/22 NSR at 79bpm. Low voltage QRS. No significant change compared to 05/02/17 per home health clinical supervisor comparison. Chest X-Ray Date: 05/11/22 FINDINGS: Cardiomediastinal and hilar silhouettes are within normal limits. No pneumothorax, pleural effusion, airspace consolidation or overt pulmonary edema. Degenerative changes of the shoulders and spine. Corticated loose body within the left subscapularis recess redemonstrated. IMPRESSION: No acute process. COVID-19 Risk Screen Screening Information COVID-19 Screen Date: 05/11/22 Exposure 21 Days Family/Household +COVID Last 21 Days: No Exposure 10 Days Any COVID Exposure Last 10 Days: No Symptoms Last 10 Days Experienced COVID Sx Last 10 Days: No + COVID 0-90 Days COVID + in Last 0-90 Days: No
--- NOTE | 2022-06-09 07:36 | History & Physical Report ---
Date of Service June 09, 2022 Assessment & Plan (1) Osteoarthritis of right hip: We will proceed with a right lateral total hip arthroplasty. Postoperatively she will be started on aspirin for DVT prophylaxis and kept overnight in the hospital for postop medical management. She plans to use energy physical therapy upon discharge. History of Present Illness Chief Complaint: Osteoarthritis of the right hip. Primary Care Provider: Ephraim Jones MD Tammy is a pleasant 62-year-old female, who is well known to me. I did a left hip replacement on her in May 2017. She had a severely dysplastic hip. Unfortunately, postoperatively, she fell and had a periprosthetic fracture of her femur. She underwent revision hip replacement about a week after the index procedure. She has done very well since. She has no left hip pain. Unfortunately, she is dealing with right hip pain. Her pain is located in her groin. It hurts her getting in and out of the car. It hurts her going up and downstairs. X-rays and clinical examination have shown worsening osteoarthritis of the right hip. After failing conservative treatment, she has elected proceed with a right total hip arthroplasty. Allergies Allergy/AdvReac Type Severity Reaction Status Date / Time Sulfa (Sulfonamide Allergy Unknown RASH Verified 05/09/22 07:38 Antibiotics) Home Medications Medication Instructions Recorded Confirmed Type naproxen 500 mg tablet 500 mg PO Q12H PRN pain #20 tabs 10/25/19 05/09/22 Rx meloxicam 15 mg tablet 15 mg PO QAM 05/09/22 05/09/22 History multivitamin 1 tab PO QAM 05/09/22 05/09/22 History Past Med/Surg History Medical History History of COVID-19 11/2021 > not hospitalized Morbid obesity Osteoarthritis Surgical History H/O exploratory laparotomy History of carpal tunnel release right History of ear surgery B/L ear drums reconstruction + multiple tubes History of total left hip replacement Left lateral MAGDI (05/26/17): SAB x1 attempt at [facility]. Pt had post-op fall (syncopal episode going to bathroom- possible orthostatic or vasovagal per hospital records) resulting in femur fracture requiring subsequent surgery/ORIF. Left ORIF periprosthetic hip fracture (06/08/17): Grade view 2, MAC#3, ETT 7.5 at [facility]. S/P AFSHIN (total abdominal hysterectomy) S/P tonsillectomy [place] teeth extracted Family History Mother Lung cancer Social History Smoking Status: Never smoker Second Hand Exposure: Yes (as kid); Hx Alcohol Use: No Hx Substance Use: No Preferred Language: French Communication Ability: Effective Geometry Professor Required: No Beliefs That Will Affect Care: None Current Living Situation: Spouse Current Living Situation Comment: /[place] Feels Safe at Home: Yes Assistive Devices: Cane Review of Systems All systems reviewed & are unremarkable except as noted in HPI & below. Physical Exam On physical examination of the right hip, she has an antalgic gait. She has p ain with forced internal and external rotation. Most of her pain is located in her groin.. Constitutional WD/WN, vitals as above Eyes PERRL, conjunctivae normal, anicteric sclerae ENMT external ear and nose normal, oropharynx normal Neck trachea midline, no thyromegaly Respiratory normal respiratory effort, lungs clear to auscultation Cardiovascular RRR, no murmur, no edema Gastrointestinal (Abdomen) normal bowel sounds, soft, nontender, no hepatosplenomegaly Skin no rashes, warm and dry Psychiatric A+Ox3, euthymic affect Results & Data Results & Data Laboratory Results . Diagnostic Findings X-rays of the right hip show advanced osteoarthritis with joint space narrowing, osteophyte formation, and [id number] articulation.. PG Care Time/CCT Total # of Minutes Spent Total Time Spent with Patient: Total time spent is greater than 50% in coordination of care (as documented) at patient's floor/unit and/or counseling patient: Coding Level of Care Code None Diagnoses Osteoarthritis of right hip M16.11
[~2022-06-10 07:52] MED LIST changes: +ACETAMINOPHEN 500 MG TAB PO SCH; -ASPEC325 PO; +BUPIVACAINE 0.5 % 5 MG/1 ML PF 10ML VIAL ONE; -CEFAZOLIN IV 3,000 MG in SYRINGE 0 ML IV SCH; +FAMOTIDINE 20 MG TAB PO SCH; +GABAPENTIN 600 MG DOSE PO SCH; -IBUP-103 PO; +Ketorolac (*for OR use only*) 30 MG, dexAMETHasone 4 MG, KETAMINE HCL (**OR use only) 1... INFIL SCH; +LR 500ML BOLUS, THEN 15ML/HR IV SCH; +LR 60ML/HR IV SCH; -RXC5 PO; +TRANEXAMIC ACID 1,000 MG **IV Intra-op IV SCH; +TRANEXAMIC ACID 1,000 MG **IV Pre-op IV SCH; +ceFAZolin 2000MG 2,000 MG/15 ML SYR IV SCH; +dexAMETHasone 4 MG TAB PO SCH
[2022-06-10] MEDS ORDERED: MIDAZOLAM HCL 1 MG/ML 2ML VIAL ONE (08:25)
[2022-06-10] MEDS ORDERED: fentaNYL citrate PF 100 MCG/2 ML VIAL ONE ×2 (08:25→10:53)
--- NOTE | 2022-06-10 09:31 | History & Physical Bridge Note ---
Date of Service June 10, 2022 History & Physical Bridge Note I have examined the patient, reviewed the History & Physical and in the interval since the performance of the History & Physical I have noted the following changes of clinical significance: no changes noted
[2022-06-10] MEDS ORDERED: PROPOFOL IV EMULSION 10 MG/ML 20 ML VIAL IV ONE ×5 (09:37→10:53)
[2022-06-10] MEDS ORDERED: KETAMINE 50 MG/5 ML SYRINGE ONE (09:37)
[2022-06-10] MEDS ORDERED: ePHEDrine sulfate 50 MG/ML AMP IV PRN (09:39)
[2022-06-10] MEDS ORDERED: ATROPINE SULFATE 0.1 MG/ML 10ML SYR IV PRN (09:39)
[2022-06-10] MEDS ORDERED: ONDANSETRON INJ 2 MG/ML 2 ML VIAL IV PRN ×2 (09:39→14:34)
[2022-06-10] MEDS ORDERED: ORTHO JOINT ANESTHETIC ONE (09:59)
[2022-06-10] MEDS ORDERED: SUCCINYLCHOLINE CHLORIDE 20 MG/ML 10 ML VIAL IV ONE (10:56)
[2022-06-10] MEDS ORDERED: ROCURONIUM BROMIDE 10 MG/ML 5 ML VIAL IV ONE ×4 (10:56→11:48)
[2022-06-10] MEDS ORDERED: GLYCOPYRROLATE 0.2 MG/ML VIAL ONE (10:56)
[2022-06-10] MEDS ORDERED: ONDANSETRON INJ 2 MG/ML 2 ML VIAL ONE (10:56)
[2022-06-10] MEDS ORDERED: DEXAMETHASONE SOD INJ 4 MG/ML VIAL ONE (10:56)
[2022-06-10] MEDS ORDERED: SUGAMMADEX SODIUM 200 MG/2 ML VIAL IV ONE (10:56)
--- NOTE | 2022-06-10 12:11 | XRay Report ---
XR hip RT 1V CLINICAL HISTORY: RIGHT HIP TAKEN IN OR. Right hip replacement. COMPARISON STUDY: None. FINDINGS: Single intraoperative image of the right hip demonstrates a right total arthroplasty. The h ardware appears intact. No fracture or dislocation. Small linear metallic density adjacent to the javier tabular cup may be associated with the prosthesis. Clinical correlation recommended. There are 2 line ar radiopaque foreign bodies overlying the right hemipelvis suggestive of an overlying drape. IMPRESSION: Intraoperative study of a right total hip arthroplasty as above. No evidence for hardwar e complication. ACT 112: Negative or not required by law. Electronically signed by: Jose Adler M.D. 06/10/2022 12:10 PM
--- NOTE | 2022-06-10 12:35 | Operative Report ---
PG Post Operative Report Pre & Post Diagnosis Operation Date: 06/10/22 12:50 Pre-Op Diagnosis: Degenerative Joint Disease Right Hip Post-Op Diagnosis: Degenerative Joint Disease Right Hip I identified the patient and participated in the time-out.: Yes Procedure Operation Date: 06/10/22 12:50 Actual Procedures p Right Total Hip Arthroplasty(Right) - Arvind Gallardo DO Surgeon Arvind Gallardo DO Dressmaker Or Tailor Arvind Hogan PA-C Estimated Blood Loss 200 Findings Consistent with Post-Op Diagnosis Specimens Right femoral head Description of Procedure On June 10, 2022 Tammy arrived at [facility] for the above procedure. She was seen in the preoperative wound area and the operative extremity identified and signed. She is given a preoperative antibiotic. She is doing back In room and laid on the table in supine position. She is under general anesthesia. She was point to the lateral cubitus position. The right hip was prepped and draped in sterile fashion. A timeout was done. The patient and the operative extremity was properly identified. An anterior lateral approach was used. Dissection was taken down through the fat layer and the IT band was exposed. The IT band was then split. The abductors were then exposed. The anterior third of the abductors were tenotomized off the greater trochanter. The capsule was then excised. The hip was then dislocated. The femoral neck was then resected and the head was removed. The acetabulum was then exposed. Time was spent doing a complete circumferential capsule labral release. Sequential reaming of the acetabulum up to a size 47 reamer was done. A 48 mm Biomet G7 [place] acetabulum was then impacted in the place. A single 25 mm screw was placed. The liner was then placed for a dual mobility component. The proximal femur was then exposed. Sequential broaching up to a size 1 broach was done. A high offset femoral neck was trialed with a standard 28 mm dual mobility head. The hip was then reduced. The hip was brought through full range of motion and felt to be stable. A single flatplate x-ray was taken and I was happy with the overall alignment of the hip. The hip was then dislocated. The broach was removed. The final size 1 high offset Shawn Avenir stem was then impacted in place. The dual mobility cup was assembled on the back table and impacted onto the femoral stem. The hip was then reduced. The hip was brought through full range of motion and felt to be stable. The wound was then irrigated. The abductors were then tenodesed back to the greater trochanter with transosseous FiberWire sutures and side to side sutures. The IT band was repaired with #1 Vicryl. The deep fat layer was closed with #1 Vicryl. Skin was closed with 2-0 Vicryl and see. She was then placed in a Prevena VAC dressing. She was then extubated and transferred to a [facility]. She was taken to the postanesthesia care unit in stable condition. She tolerated the procedure well. Arvind Hogan PA-C, was present for the entire procedure. He was critical for patient positioning, prepping, draping, retraction exposure, wound closure and a pplication of sterile dressing. I attest to the content of the Intraoperative Record and any orders documented therein. Any exceptions are noted below.
[2022-06-10] MEDS: fentaNYL citrate PF 100 MCG/2 ML VIAL IV PRN ×8 (12:57→13:34)
--- NOTE | 2022-06-10 13:39 | Anesthesiology Progress Note ---
Date of Service June 10, 2022 Anesthesia Post Procedure Vital Signs Vital Signs: Temp Pulse Pulse Resp BP Pulse Ox O2 Del Method 06/10/22 13:30 88 12 96/75 L 94 Nasal Cannula 06/10/22 13:20 84 12 102/60 97 Nasal Cannula 06/10/22 13:10 82 14 103/57 L 96 Oxymask 06/10/22 13:00 85 12 104/73 97 Oxymask 06/10/22 12:52 97.2 F L 96 H 14 117/67 97 Oxymask 06/10/22 08:36 98.6 F 87 18 148/77 H 96 Room Air O2 Flow Rate 06/10/22 13:30 2 06/10/22 13:20 2 06/10/22 13:10 5 06/10/22 13:00 7 06/10/22 12:52 7 06/10/22 08:36 Pain Intensity Right Hip: Pain Intensity: 5 Transfer of Care Handoff Completed per policy Notes Mental Status: alert / awake / arousable and participated in evaluation Patient Amnestic to Procedure: Yes Nausea / Vomiting: adequately controlled Pain: adequately controlled Airway Patency, RR, SpO2: stable & adequate BP & HR: stable & adequate Hydration State: stable & adequate Anesthetic Complications: no major complications apparent and Pt Satisfied with anesthetic care
--- NOTE | 2022-06-10 14:00 | XRay Report ---
XR hip 1V RT w pelvis HISTORY: 62 years-old Female IN PACU - Post Surgical right hip arthroplasty COMPARISON: 06/10/2022 TECHNIQUE: AP view the pelvis with crosstable lateral view of the right hip FINDINGS: Partially imaged left hip arthroplasty with cerclage wires. The right hip arthroplasty appears in sat isfactory positioning. No acute fracture, dislocation or unexpected opaque foreign body. Lateral skin see are present along with expected postoperative soft tissue swelling with deep tissue air. IMPRESSION: Right hip total joint arthroplasty with expected postoperative changes. ACT 112: Negative or not required by law. The above report was generated using voice recognition software. It may contain grammatical, syntax o r spelling errors. Electronically signed by: Riaz Esquivel M.D. 06/10/2022 1:59 PM
[2022-06-10] MEDS ORDERED: HYDROmorphone INJ 0.5 MG/0.5 ML SYR IV PRN (14:34)
[2022-06-10] MEDS ORDERED: NALOXONE HCL 0.4 MG/1 ML VIAL/CARP IV PRN (14:34)
[2022-06-10] MEDS ORDERED: bisacodyL 10 MG SUPP PR PRN (14:34)
[2022-06-10] MEDS ORDERED: oxyCODONE HCL IR 5 MG TAB (IMMEDIATE RELEASE) PO PRN (14:34)
[2022-06-10] MEDS ORDERED: METOCLOPRAMIDE HCL INJ 5 MG/ML 2 ML VIAL IV PRN (14:34)
[2022-06-10] MEDS ORDERED: MAGNESIUM HYDROXIDE SUSP 30 ML UDC PO PRN (14:34)
[2022-06-10] MEDS: ACETAMINOPHEN 500 MG TAB PO SCH ×2 (14:53→21:05)
[2022-06-10] MEDS: SODIUM CHLORIDE 0.9% 1000ML 1,000 ML IV SCH (14:53)
[2022-06-10] MEDS: KETOROLAC 30 MG/ML VIAL IV SCH ×2 (15:54→21:06)
[2022-06-10] MEDS: ceFAZolin 2000MG 2,000 MG/15 ML SYR IV SCH (18:23)
[2022-06-10] MEDS ORDERED: SENNA 8.6 MG TAB PO SCH (21:00)
[2022-06-10] MEDS: ASPIRIN 81 MG ECTAB PO SCH (21:05)
[2022-06-10] MEDS: DOCUSATE SODIUM 100 MG CAP PO SCH (21:05)
[2022-06-11] MEDS: ceFAZolin 2000MG 2,000 MG/15 ML SYR IV SCH (01:09)
[2022-06-11] MEDS: SODIUM CHLORIDE 0.9% 1000ML 1,000 ML IV SCH (01:24)
[2022-06-11] MEDS: KETOROLAC 30 MG/ML VIAL IV SCH ×2 (04:39→09:40)
[2022-06-11] MEDS: ACETAMINOPHEN 500 MG TAB PO SCH (05:01)
--- NOTE | 2022-06-11 06:19 | Orthopedic Progress Note ---
Date of Service June 11, 2022 Assessment & Plan (1) Status post right hip replacement: Overall she is doing very well. She is not having much pain in the right hip. She is on aspirin for DVT prophylaxis. She can be seen by physical therapy later today for ambulation and range of motion exercises. She can be discharged home later today. She will follow with orthopedics in 2 weeks. Joo Munoz was seen and examined at bedside this morning. Overall she is doing very well. She is not having too much pain in the right hip. She has been up and ambulating to the bathroom. She has no complaints.. Review of Systems All systems reviewed & are unremarkable except as noted in HPI & below. Physical Exam On physical examination of the right hip, the dressing is clean and dry. Her leg is out full extension. She has active dorsiflexion plantarflexion of her right ankle.. Results & Data Results & Data Laboratory Results . Diagnostic Findings Postoperative x-rays of the right hip show the prosthesis to be in anatomic alignment without any evidence of fracture, dislocation, or loosening. PG Care Time/CCT Total # of Minutes Spent Total Time Spent with Patient: Total time spent is greater than 50% in coordination of care (as documented) at patient's floor/unit and/or counseling patient: Coding Level of Care Code 69523 Post Operative Follow-Up Diagnoses Status post right hip replacement Z96.641
--- NOTE | 2022-06-11 06:20 | Discharge Summary ---
Date of Service June 11, 2022 Admission HPI (Per Admitting) Tammy is a pleasant 62-year-old female, who is well known to me. I did a left hip replacement on her in May 2017. She had a severely dysplastic hip. Unfortunately, postoperatively, she fell and had a periprosthetic fracture of her femur. She underwent revision hip replacement about a week after the index procedure. She has done very well since. She has no left hip pain. Unfortunately, she is dealing with right hip pain. Her pain is located in her groin. It hurts her getting in and out of the car. It hurts her going up and downstairs. X-rays and clinical examination have shown worsening osteoarthritis of the right hip. After failing conservative treatment, she has elected proceed with a right total hip arthroplasty. Admission Exam (Per Admitting) On physical examination of the right hip, she has an antalgic gait. She has pain with forced internal and external rotation. Most of her pain is located in her groin.. Principal Diagnosis Same as "Discharge Diagnosis" noted below under Discharge Instructions. Discharge Exam On physical examination of the right hip, the dressing is clean and dry. Her leg is out full extension. She has active dorsiflexion plantarflexion of her right ankle.. Discharge Data Procedures Performed Operation Date: 06/10/22 12:50 Actual Procedures p Right Total Hip Arthroplasty(Right) - Arvind Gallardo DO Hospital Course (1) Status post right hip replacement: On June 11, 2022 Tammy arrived at [facility] and underwent a right hip replacement without complication. She had a general anesthetic. Postoperatively she was started on aspirin for DVT prophylaxis and transferred to the general orthopedic floors. Her hospital course was uneventful. On postop day #1, her vital signs were stable and her pain was well controlled. She was able participate well with physical therapy doing ambulation and range of motion exercises. She was then discharged home. She will follow-up with orthopedics in 2 weeks. PG Care Time/CCT Total # of Minutes Spent Total Time Spent with Patient: Total time spent is greater than 50% in coordination of care (as documented) at patient's floor/unit and/or counseling patient: Discharge Plan Discharge Items Patient Disposition: Home - Home Health Services Reason For Visit: Degenerative Joint Disease Right Hip Discharge Diagnosis: Right hip replacement Activity: Per Instructions section Non-emergency contact: Surgeon Call non-emergency contact if: your wound has increased redness and your wound has increased drainage Follow-up/Referrals: Ephraim Jones MD [Primary Care Provider] - Diet: Regular Addtl Attending Provider Instructions: Activity and Therapy Recommendations: * If you are using [facility] then therapy will be provided at your home until they feel you have accomplished all of your goals. * If you are using [facility] then Physical Therapy will be provided until they feel you are ready to start Outpatient Physical Therapy. * If you are not using home therapy then Outpatient Physical Therapy should start about 3-5 days from your day of surgery. Therapy will last about 6-10 weeks * You were shown a series of exercises in the hospital. Do these exercises three times each day including the exercises you were shown in physical therapy. * Get up and walk several times each day.~ For the first four weeks, try not to stand or walk for more than one hour at a time. If you do stand or walk for more than one hour, you will not hurt anything, but your leg will likely swell.~~ * As you feel comfortable, you may change from the walker or crutches to a cane and~then to independent walking. Medications: * Narcotic You will likely be sent home from the hospital with a prescription for the narcotic pain medication that worked best throughout your stay. * Aspirin Most patients will be required to take Aspirin 81mg twice a day for 6 weeks after surgery. This is obtained [id number] and a prescription is not necessary. * Other medications may be prescribed for specific circumstances. If you have any questions, please call the office at . * Resume previous home medications unless otherwise instructed TEDs/Elastic Stockings: The white elastic stockings help limit swelling and prevent blood clots from forming in your legs. The more you wear them, the more they work. Wear them for six weeks. Dressing Care: Leave the Silverlon dressing in place for 7 days. After 7 days you may remove the dressing. If the incision is not draining then you may leave the see open to air. If there is a little bit of drainage or if the see are getting stuck on your clothing then cover the incision with a dry dressing. The see will be removed at your 2 week follow-up appointment. Showering: You may shower with the Silverlon dressing in place. Do not let the shower spray hit the dressing directly. Pat the Silverlon dressing dry. If the dressing becomes wet underneath, then simply remove the dressing. Keep the incision dry until you are 7 days out from the day of surgery. After 7 days you may remove the Silverlon dressing and shower with the see exposed. Let soapy water run over the see and pat them dry. Do not scrub or soak the incision. Things To Watch For: * Drainage from the incision site that occurs more than one week after your surgery. * Increased redness at the incision site. * Fever above 102 degrees Fahrenheit. * Unusual chest pain or shortness of breath. * Call [facility] at with any of the above problems Follow-Up Visit: Follow-up with Dr. Gallardo's PA (Arvind Hogan) 2-3 weeks after your day of surgery. He will remove your see and answer any questions. If you have any additional questions or concerns, Dr Gallardo is usually in the office at the same time and will be available An appointment was probably scheduled when you signed-up for surgery in the office. If you have any questions call Office Instructions: More detailed instructions as well as Frequently Asked Questions were provided in a folder by our office when you signed-up for surgery. Please review these instructions when you get home. If you have any further questions or concerns, please feel free to call the office at [phone] Pending Studies at Discharge: No Stand-Alone Forms: [facility], Smoking Cessation Medications and DC Order Prescriptions: New oxycodone-acetaminophen 5-325 mg tablet 1 tab PO Q6H PRN (Reason: pain) Qty: 30 0RF aspirin 81 mg Tablet,Delayed Release (Dr/Ec) 81 mg PO BID 42 Days Qty: 84 0RF Continued naproxen 500 mg tablet 500 mg PO Q12H PRN (Reason: pain) Qty: 20 0RF multivitamin Tablet 1 tab PO QAM meloxicam 15 mg tablet 15 mg PO QAM Admission Data Admit Date/Time: 06/10/22 12:52 Attending Provider: Arvind Gallardo Admit Provider: Arvind Gallardo Primary Care Provider: Ephraim Jones
[2022-06-11] MEDS ORDERED: dexAMETHasone 4 MG TAB PO SCH (08:00)
[2022-06-11] MEDS ORDERED: MULTIVITAMIN TAB PO SCH (09:00)
[2022-06-11] MEDS: DOCUSATE SODIUM 100 MG CAP PO SCH (09:40)
[2022-06-11] MEDS: ASPIRIN 81 MG ECTAB PO SCH (09:40)
== END 2022-06-11 13:09 | disposition home health service (06) ==
LOC: ASU 07:52 → 3E 07:52